=== PATIENT | male | born 1940 | race Caucasian/White ===

== ENCOUNTER 2021-07-24 13:10 | Inpatient (IN) | payer MEDICARE ==
[~2021-07-24] VITALS: Ht 172.7 cm; Wt 68.9 kg
[2021-07-24] MEDS ORDERED: LEVE500T21 PO (16:51)
[2021-07-24] MEDS ORDERED: FINA5TAB4 PO ×2 (16:51→21:24)
[2021-07-24] MEDS ORDERED: MAGN400O7 PO (16:51)
[2021-07-24] MEDS ORDERED: MAGN400T48 PO ×2 (16:51→21:24)
[2021-07-24] MEDS ORDERED: ASPI-630 PO (16:51)
[2021-07-24] MEDS ORDERED: FENO160T PO (16:51)
[2021-07-24] MEDS ORDERED: ACET500T68 PO (16:51)
[2021-07-24] MEDS ORDERED: CALC-135 PO (16:51)
[2021-07-24] MEDS ORDERED: LOPE2TAB27 PO (16:51)
[2021-07-24] MEDS ORDERED: OLAN5TAB67 PO (16:51)
[2021-07-24] MEDS ORDERED: LORA2ORA8 PO ×2 (16:51)
[2021-07-24] MEDS ORDERED: CALC500T31 PO (16:51)
[2021-07-24] MEDS ORDERED: CRAN500T3 PO (16:51)
[2021-07-24] MEDS ORDERED: MELA5TAB20 PO (16:51)
[2021-07-24] MEDS ORDERED: CALC500T14 PO (16:51)
[2021-07-24] MEDS ORDERED: LACT10SO17 PO (16:51)
[2021-07-24] MEDS ORDERED: ATEN25TA42 PO (16:51)
[2021-07-24] MEDS ORDERED: L GA1CAP PO (16:52)
[2021-07-24] MEDS ORDERED: CHOL10004 PO (16:52)
[2021-07-24] MEDS ORDERED: MIRT-7 PO (16:52)
[2021-07-24] MEDS ORDERED: PRIM50TA24 PO ×2 (16:52→21:24)
[2021-07-24] MEDS ORDERED: PANT40TA6 PO ×2 (16:52→21:24)
[2021-07-24] MEDS ORDERED: TAMS0.4C97 PO (16:52)
[2021-07-24] MEDS ORDERED: CARB15DR3 EACHEYE (16:52)
[2021-07-24] MEDS ORDERED: BISM262T12 PO (16:52)
[2021-07-24] MEDS ORDERED: VIT1CAPS12 PO (16:52)
[2021-07-24] MEDS ORDERED: LOPERAMIDE 2 MG CAPSULE PO PRN (21:15)
[2021-07-24] MEDS ORDERED: OLAN2.5T3 PO (21:24)
[2021-07-24] MEDS ORDERED: LOPE-101 PO (21:24)
[2021-07-24] MEDS ORDERED: CALC200T3 PO (21:24)
[2021-07-24] MEDS ORDERED: LEVE500T6 PO (21:24)
[2021-07-24] MEDS ORDERED: MELA10TA PO (21:24)
[2021-07-24] MEDS ORDERED: LACT1CAP19 PO (21:24)
[2021-07-24] MEDS ORDERED: METHYL SALICYLATE/MENTHOL TOPICAL OINTMENT 57GM TUBE. TP PRN (21:45)
[2021-07-24] MEDS ORDERED: MAG HYDROX/AL HYDROX/SIMETH 30 ML ORAL.SUSP PO PRN (21:45)
[2021-07-24] MEDS ORDERED: MAGNESIUM HYDROXIDE 2,400 MG/30 ML ORAL.SUSP. PO PRN (21:45)
[2021-07-24 21:58] VITALS: BP 153/79
[2021-07-24] MEDS: OLANZapine 2.5 MG TABLET PO SCH (22:15)
[2021-07-24] MEDS: levETIRAcetam 500 MG TABLET PO SCH (22:15)
[2021-07-24] MEDS: ACETAMINOPHEN 325 MG TABLET PO PRN (22:15)
[2021-07-24] MEDS: MELATONIN 3 MG TABLET PO SCH (22:15)
[2021-07-25 06:17] VITALS: BP 147/90
--- NOTE | 2021-07-25 07:11 | PDOC ---
Exam Note: Phillip Note: Late entry for 07/24/2021. Please also refer to the separate dictated note~for this date of service dictated separately.~Patient seen individually. Discussed the patient with Nursing staff reviewed the chart.~Reviewed interim history and current functioning. Reviewed vital signs,~Labs/ Radiology~and current medic ations noted below. Continue current treatment with the changes noted in the dictated addendum note Assessment: Vital Signs/I&O: Vital Signs Date Time Temp Pulse Resp B/P (MAP) Pulse Ox O2 Delivery O2 Flow Rate FiO2 07/25/21 06:17 97.4 76 18 147/90 (109) 97 07/24/21 21:58 Room Air I & O 07/24/21 07/24/21 07/25/21 15:00 23:00 07:00 Intake Total 240 ml Balance 240 ml Current Medications: Meds: Current Medications Medications (Trade) Dose Ordered Sig/Vera Route PRN Reason Start Time Stop Time Status Last Admin Dose Admin Calcium Carbonate/ Glycine (Tums) 500 mg BID PO 07/25/21 09:00 Finasteride (Proscar) 5 mg DAILY PO 07/25/21 09:00 Lactobacillus Rhamnosus (Culturelle) 1 cap DAILY PO 07/25/21 09:00 Levetiracetam (Keppra) 1,000 mg 0800,1300 PO 07/24/21 22:00 07/24/21 22:15 Loperamide HCl (Imodium) 2 mg PRN DAILY PRN PO DIARRHEA 07/24/21 21:15 Magnesium Oxide (Magnesium Oxide) 400 mg BID PO 07/25/21 09:00 Olanzapine (ZyPREXA) 2.5 mg BID PO 07/24/21 22:00 07/24/21 22:15 Pantoprazole Sodium (Protonix) 40 mg DAILYAC PO 07/25/21 07:30 Primidone (Mysoline) 12.5 mg DAILY PO 07/25/21 09:00 Melatonin (Melatonin) 6 mg HS PO 07/24/21 22:00 07/24/21 22:15 Acetaminophen (Tylenol) 650 mg PRN Q6HRS PRN PO MILD PAIN / TEMP > 100.3'F 07/24/21 21:45 07/24/21 22:15 Multi-Ingredient Ointment (Analgesic [place]) 1 nicol PRN QID PRN TP MUSCLE PAIN 07/24/21 21:45 Al Hydroxide/Mg Hydroxide (Mylanta Plus Xs) 15 ml PRN AFTMEALHC PRN PO DYSPEPSIA 07/24/21 21:45 Magnesium Hydroxide (Milk Of Magnesia) 2,400 mg PRN QHS PRN PO CONSTIPATION 07/24/21 21:45 Influenza Virus Vaccine Quadrival (Flulaval Quad Syringe) 0.5 ml ONCE ONCE VAX IM 07/25/21 09:00 07/25/21 09:01 Current Medications Medications (Trade) Dose Ordered Sig/Vera Route PRN Reason Start Time Stop Time Status Last Admin Dose Admin Levetiracetam (Keppra) 1,000 mg 0800,1300 PO 07/24/21 22:00 07/24/21 22:15 Olanzapine (ZyPREXA) 2.5 mg BID PO 07/24/21 22:00 07/24/21 22:15 Melatonin (Melatonin) 6 mg HS PO 07/24/21 22:00 07/24/21 22:15 Acetaminophen (Tylenol) 650 mg PRN Q6HRS PRN PO MILD PAIN / TEMP > 100.3'F 07/24/21 21:45 07/24/21 22:15 I have reviewed the current psychotropics carefully including drug interactions. Risk benefit ratio favors no change other than as noted in my dictated progress note. ARON MULLER MD Jul 25, 2021 07:11
[2021-07-25] MEDS: FINASTERIDE 5 MG TABLET. PO SCH (08:34)
[2021-07-25] MEDS: levETIRAcetam 500 MG TABLET PO SCH ×2 (08:34→11:54)
[2021-07-25] MEDS: LACTOBACILLUS RHAMNOSUS GG 1 CAPSULE. PO SCH (08:34)
[2021-07-25] MEDS: MAGNESIUM OXIDE 400 MG TABLET PO SCH ×2 (08:35→20:01)
[2021-07-25] MEDS: PANTOPRAZOLE 40 MG TABLET. PO SCH (08:35)
[2021-07-25] MEDS: CALCIUM CARBONATE 500 MG TAB.CHEW PO SCH ×2 (08:35→20:01)
[2021-07-25] MEDS: PRIMIDONE 50 MG TABLET PO SCH (08:35)
[2021-07-25] MEDS: OLANZapine 2.5 MG TABLET PO SCH ×2 (08:35→20:01)
[2021-07-25] MEDS ORDERED: FLU VACC QUAD 21-22 (6MOS+) PF 0.5 ML SYRINGE. VAX IM ONE (09:00)
[2021-07-25 09:34] LABS: BASO # 0.1 x10^3/uL (0.0-0.2); BASO % 1 % (0-3); EOS # 0.2 x10^3/uL (0.0-0.7); EOS % 3 % (0-3); HEMATOCRIT 39.6 % (39.0-53.0); HEMOGLOBIN 12.7 g/dL (13.0-17.5); LYMPH # 0.9 x10^3/uL (1.0-4.8); LYMPH % 11 % (24-48); MEAN CORPUSCULAR HEMOGLOBIN 27 pg (25-35); MEAN CORPUSCULAR HGB CONC 32 g/dL (31-37); MEAN CORPUSCULAR VOLUME 84 fL (79-100); MONO # 0.5 x10^3/uL (0.0-1.1); MONO % 6 % (0-9); NEUT # 6.2 x10^3uL (1.8-7.7); NEUT % 79 % (31-73); PLATELET COUNT 441 x10^3/uL (140-400); RED CELL DISTRIBUTION WIDTH 14.8 % (11.5-14.5); WHITE BLOOD COUNT 7.8 x10^3/uL (4.0-11.0)
[2021-07-25 09:42] LABS: ALBUMIN/GLOBULIN RATIO 0.8 (1.0-1.7); CALCIUM 9.1 mg/dL (8.5-10.1); CREATININE 0.7 mg/dL (0.7-1.3); GFR 108.8; MAGNESIUM 1.5 mg/dL (1.8-2.4); POTASSIUM 3.7 mmol/L (3.5-5.1); TOTAL BILIRUBIN 0.6 mg/dL (0.2-1.0); TOTAL PROTEIN 6.9 g/dL (6.4-8.2)
--- NOTE | 2021-07-25 15:07 | TX PLAN ---
Interdisciplinary Tx Plan Admission Information Jul 24, 2021 at 18:40 Legal Status (on Admission): Voluntary, DPOA DPOA/Guardian Name: Alison Thornton Contact Verified Code Status: DNR Allergies: Coded Allergies: tree and shrub pollen (Verified Allergy, Unknown, 07/24/21) Uncoded Allergies: Elm tree (Allergy, Unknown, 07/24/21) Estimated Length of Stay: 14 Diagnoses Primary Diagnosis: Major neurocognitive d/o, vascular, alzheimers, with delusions, depression, and BD; Anxiety d/o unspecified; Impulse control d/o Reasons for Admission: Aggressive, Delusions, Agitated, Depressed, Angry, Anxiety/Panic, Hallucinations, Suicidal ideation, Confusion/Disoriented, Poor impulse control Problem in Patient's Words: Per Clinton, "I'm in my final resting place." Additional Admission Comments: Per intake record, grabbed an aide by the wrist and shook her, walking naked in the halls, paranoid, anxious, fixated on dying, thinks he's , wants to , beating his head on the wall, and delusional. Problems Active Problems: Aggressive Delusional Depressed/anxious SI Beating head on wall Poor sleep Socially inappropriate Inactive Problems: Taking meds whole Pt Strengths/Limitations Ability for [place]: Poor Cognitive Functioning/Ability: Poor Communication Skills/Ability: Fair Financial Resources: Fair Insight/Judgement: Poor Intellectual Ability: Fair Physical Health: Fair Social Skills: Fair Stability in Family: Good Verbal Skills: Fair Discharge Criteria Discharge Criteria: No need for close observ., Adequate arrangements @DC, Improved behavior, Improved mood/thought Preliminary Discharge Plan Preliminary DC Plan: Memory Care Other Arrangements: Clinton will return to [facility] once stable Special Precautions Special Precautions: Agitation/Assault, Suicide Risk Fall Risk: High Initial D/C Plan To return to [facility] memory care once stable Identified Discharge Needs: PCP Out patient psychiatry, if available Currently Utilized Resources Currently Utilized Resources/P: PCP 24 hour care by [facility] Referrals Community Resources: Out patient psychiatry if available Identified Problems/Hx/Goals Objectives/Short-Term Goals Short Term Goals: Control abnormal behavior, Dec. Aggression, Dec. Symp. Depression, Medication Stabilization, Monitor Med Effects Short Term Goals in Patient's: Per POA, mood and behavior stabilization rex Alonzo can enjoy the remainder of his life. Interventions/Frequency Staff Interventions/Frequency&: Nursing to provide routine safety checks, adl support, and medication administration. PT/OT eval and treat as indicated. Psychiatry to se three times weekly. SW to see twice weekly. SW and recreational therapy groups as Clinton is willing. 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 Social: Clinton enjoyed latter-day involvement and singing in choirs. Education: Clinton graduated high school and attended some college. Community Follow-up PCP Out patient psychiatry if available 24 hour memory care Community Provider/Family Inpu: Alison, /POA, participted in team meeting via phone on this date. Treatment Plan Explained Patient/Reinsurance Claims Analyst had this treatment plan explained to him/her as indicated by the signature below and has been given the opportunity to ask questions and make suggestions: Date: Patient/Reinsurance Claims Analyst Signature: MATT TOMPKINS Jul 25, 2021 15:07
[2021-07-25 15:32] VITALS: BP 123/76
[2021-07-25 15:40] LABS: THYROID STIM HORMONE (TSH) 1.171 uIU/mL (0.358-3.740)
[2021-07-25] MEDS: MELATONIN 3 MG TABLET PO SCH (20:01)
[2021-07-25] MEDS: MIRTAZAPINE 7.5 MG TABLET. PO SCH (20:02)
--- NOTE | 2021-07-25 20:50 | PDOC ---
Exam Note: Phillip Note: Please also refer to the separate dictated note~for this date of service dictated separately.~Patient seen individually. Discussed the patient with Nursing staff reviewed the chart.~Reviewed interim history and current functioning. Reviewed vital signs,~Labs/ Radiology~and current medications noted below. Continue current treatment with the changes noted in the dictated addendum note Assessment: Vital Signs/I&O: Vital Signs Date Time Temp Pulse Resp B/P (MAP) Pulse Ox O2 Delivery O2 Flow Rate FiO2 07/25/21 15:32 98.0 69 16 123/76 (92) 95 Room Air I & O 07/24/21 07/24/21 07/25/21 15:00 23:00 07:00 Intake Total 240 ml Balance 240 ml Labs: Laboratory Tests Test 07/25/21 09:06 White Blood Count 7.8 x10^3/uL (4.0-11.0) Red Blood Count 4.70 x10^6/uL (4.30-5.70) Hemoglobin 12.7 g/dL (13.0-17.5) L Hematocrit 39.6 % (39.0-53.0) Mean Corpuscular Volume 84 fL (79-100) Mean Corpuscular Hemoglobin 27 pg (25-35) Mean Corpuscular Hemoglobin Concent 32 g/dL (31-37) Red Cell Distribution Width 14.8 % (11.5-14.5) H Platelet Count 441 x10^3/uL (140-400) H Neutrophils (%) (Auto) 79 % (31-73) H Lymphocytes (%) (Auto) 11 % (24-48) L Monocytes (%) (Auto) 6 % (0-9) Eosinophils (%) (Auto) 3 % (0-3) Basophils (%) (Auto) 1 % (0-3) Neutrophils # (Auto) 6.2 x10^3uL (1.8-7.7) Lymphocytes # (Auto) 0.9 x10^3/uL (1.0-4.8) L Monocytes # (Auto) 0.5 x10^3/uL (0.0-1.1) Eosinophils # (Auto) 0.2 x10^3/uL (0.0-0.7) Basophils # (Auto) 0.1 x10^3/uL (0.0-0.2) D-Dimer (Kalli) 1.03 mg/L (0.00-0.50) H Sodium Level 139 mmol/L (136-145) Potassium Level 3.7 mmol/L (3.5-5.1) Chloride Level 101 mmol/L (98-107) Carbon Dioxide Level 28 mmol/L (21-32) Anion Gap 10 (6-14) Blood Urea Nitrogen 16 mg/dL (8-26) Creatinine 0.7 mg/dL (0.7-1.3) Estimated GFR (Cockcroft-Gault) 108.8 BUN/Creatinine Ratio 23 (6-20) H Glucose Level 112 mg/dL (70-99) H Calcium Level 9.1 mg/dL (8.5-10.1) Magnesium Level 1.5 mg/dL (1.8-2.4) L Iron Level 30 ug/dL (65-175) L Total Iron Binding Capacity 213 ug/dL (250-450) L Iron Saturation 14 % (15-34) L Total Bilirubin 0.6 mg/dL (0.2-1.0) Aspartate Amino Transferase (AST) 15 U/L (15-37) Alanine Aminotransferase (ALT) 13 U/L (16-63) L Alkaline Phosphatase 96 U/L (46-116) Total Protein 6.9 g/dL (6.4-8.2) Albumin 3.0 g/dL (3.4-5.0) L Albumin/Globulin Ratio 0.8 (1.0-1.7) L Triglycerides Level 92 mg/dL (0-150) Cholesterol Level 182 mg/dL (0-200) LDL Cholesterol, Calculated 112 mg/dL (0-100) H VLDL Cholesterol, Calculated 18 mg/dL (0-40) Non-HDL Cholesterol Calculated 130 mg/dL (0-129) H HDL Cholesterol 52 mg/dL (40-60) Cholesterol/HDL Ratio 3.0 Vitamin B12 Level 503 pg/mL (247-911) 25-Hydroxy Vitamin D Total 29.1 ng/mL (30-100) L Thyroid Stimulating Hormone (TSH) 1.171 uIU/mL (0.358-3.740) Treponema pallidum Antibody Nonreactive (Nonreactive) Current Medications: Meds: Current Medications Medications (Trade) Dose Ordered Sig/Vera Route PRN Reason Start Time Stop Time Status Last Admin Dose Admin Calcium Carbonate/ Glycine (Tums) 500 mg BID PO 07/25/21 09:00 07/25/21 20:01 Finasteride (Proscar) 5 mg DAILY PO 07/25/21 09:00 07/25/21 08:34 Lactobacillus Rhamnosus (Culturelle) 1 cap DAILY PO 07/25/21 09:00 07/25/21 08:34 Levetiracetam (Keppra) 1,000 mg 0800,1300 PO 07/24/21 22:00 07/25/21 11:54 Magnesium Oxide (Magnesium Oxide) 400 mg BID PO 07/25/21 09:00 07/25/21 20:01 Olanzapine (ZyPREXA) 2.5 mg BID PO 07/24/21 22:00 07/25/21 20:01 Pantoprazole Sodium (Protonix) 40 mg DAILYAC PO 07/25/21 07:30 07/25/21 08:35 Primidone (Mysoline) 12.5 mg DAILY PO 07/25/21 09:00 07/25/21 08:35 Melatonin (Melatonin) 6 mg HS PO 07/24/21 22:00 07/25/21 20:01 Acetaminophen (Tylenol) 650 mg PRN Q6HRS PRN PO MILD PAIN / TEMP > 100.3'F 07/24/21 21:45 07/24/21 22:15 Influenza Virus Vaccine Quadrival (Flulaval Quad [id number] Syringe) 0.5 ml ONCE ONCE VAX IM 07/25/21 09:00 07/25/21 09:01 DC 07/25/21 14:41 Olanzapine (ZyPREXA ZYDIS) 2.5 mg PRN Q2HR PRN PO PSYCHOSIS 07/25/21 18:45 07/25/21 20:01 Mirtazapine (Remeron) 7.5 mg QHS PO 07/25/21 21:00 07/25/21 20:02 I have reviewed the current psychotropics carefully including drug interactions. Risk benefit ratio favors no change other than as noted in my dictated progress note. ARON MULLER MD Jul 25, 2021 20:50
--- NOTE | 2021-07-25 22:09 | HP ---
DATE OF SERVICE: 07/25/2021 ADMIT DATE: 07/24/2021 PSYCHIATRIC ADMISSION HISTORY/EVALUATION This is a late entry, date of service 07/24 covers elements not covered in my initial note of 07/24. IDENTIFYING DATA: The patient is a 81-year-old male referred to us from [facility] via the Emergency Room at [facility] on account of increased agitation, depression, expressing thoughts and plans to end his life, beating his head on the wall, delusional, feeling that he is dying and at times believes he is . He has been eating nonedible things after announcing it. He grabbed the wrist of a inpatient nursing aide and shook her. He has been walking naked in the hallways and has failed outpatient psychiatric interventions, increasingly confused, depressed, psychotic and referred for inpatient psychiatric stabilization, having failed a prior inpatient stay at [facility]. He did develop COVID infection during that hospitalization and his psychiatric symptoms have been progressively worse somewhat before that, but also since then. CHIEF COMPLAINT: "I am okay." The patient was seen shortly after he arrived on the unit, evening of 07/24, previously discussed with Laisha Almanzar, cdl program coordinator and nursing staff, reviewed information from [facility] and the care home. HISTORY OF PRESENT ILLNESS: The patient has a history of worsening symptoms of depression, feeling hopeless, helpless, worthless, agitated, beating his head on the wall, asking his for a gun so that he could end his life. This has been particularly concerning for the since the patient's father's side has history of 2 successful suicides including the patient's father and the father's sister. The patient has some sleep and appetite changes, worsening memory deficits, urinary and fecal incontinence. No clear symptoms of bipolar disorder. PAST PSYCHIATRIC HISTORY: As above. MEDICAL HISTORY: Positive for GERD, BPH, epilepsy, metabolic encephalopathy, obstructive sleep apnea, hyperlipidemia, hypertension, agoraphobia with panic disorder, obstructive sleep apnea, obstructive and reflux uropathy, hypomagnesemia, acute respiratory failure with hypoxia, muscle weakness, hypotension, acute kidney failure. ACCU-CHEKS: None. CODE STATUS: DNR. ALLERGIES: Negative. DIET: Regular. Takes medications whole. Ambulates with walker. UA 07/23 was negative. CURRENT PSYCHOTROPICS: Keppra 1000 mg b.i.d., melatonin 10 mg at bedtime, Zyprexa 2.5 mg b.i.d. FAMILY HISTORY: As noted above. SOCIAL HISTORY: The patient was residing at home with his and most recently has been at the care home. 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 He has 1 son, Jonathan, who lives in [place], [place]. No physical, sexual or elder abuse history is noted. He is not known to be a perpetrator. REACTION TO HOSPITALIZATION: The patient accepting of it, but somewhat oblivious to it as well. REVIEW OF SYSTEMS: Ambulation impaired. No CV, , pulmonary, eye, ENT system symptoms on review. MENTAL STATUS EXAM: The patient was seen individually on evening of 07/24. He is extremely anxious, oriented just to himself, but on further questioning, the orientation was better than he initially presented with. Speech moderate latency, somewhat distractible. No active suicidal or homicidal ideation. Mood is depressed, anxious. Short-term memory is impaired. IMPRESSION: Major depressive disorder, recurrent with psychotic features, major neurocognitive disorder multifactorial with delusion, depression, behavioral disturbance; anxiety disorder, unspecified; impulse control disorder, unspecified. Rest as above. PLAN: Admit to Geropsychiatry unit at [facility]. I will see the patient daily individually from a psychiatric standpoint, medical followup, Dr. Page/Dr. Cuevas. Continue patient on his current psychotropics. Consider adding Zyprexa p.r.n. We will assess the patient's baseline. Consider Zoloft as an antidepressant and Remeron if insomnia persists and this should also help his anxiety. We will adjust further as clinically indicated. ESTIMATED LENGTH OF STAY: 10-12 days. DISPOSITION PLANS: Back to care home when stable. We will also get records from his last psychiatric hospitalization at [facility]. CARLIE DR: Zulema TID: [id number]
[2021-07-25 22:32] LABS: THYROXINE 6.3 ug/dL (4.5-12.0)
[2021-07-26 00:07] LABS: HEMOGLOBIN A1C 5.5 % (4.8-5.6)
[2021-07-26 06:35] VITALS: BP 141/87
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
[2021-07-26] MEDS: levETIRAcetam 500 MG TABLET PO SCH ×2 (08:43→12:33)
[2021-07-26] MEDS: FINASTERIDE 5 MG TABLET. PO SCH (08:43)
[2021-07-26] MEDS: PANTOPRAZOLE 40 MG TABLET. PO SCH (08:43)
[2021-07-26] MEDS: PRIMIDONE 50 MG TABLET PO SCH (08:44)
[2021-07-26] MEDS: LACTOBACILLUS RHAMNOSUS GG 1 CAPSULE. PO SCH (08:44)
[2021-07-26] MEDS: MAGNESIUM OXIDE 400 MG TABLET PO SCH ×2 (08:44→20:47)
[2021-07-26] MEDS: OLANZapine 2.5 MG TABLET PO SCH ×2 (08:44→20:46)
[2021-07-26] MEDS: CALCIUM CARBONATE 500 MG TAB.CHEW PO SCH ×2 (08:44→20:47)
[2021-07-26] MEDS: SERTRALINE 25 MG TABLET. PO SCH (08:45)
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
[2021-07-26 15:48] VITALS: BP 128/83
--- NOTE | 2021-07-26 16:49 | EKG ---
[address] [address] Test Date: 2021-07-26 Test Time: 15:30:41 Pat Name: USMAN MIGUEL Department: Room: [address] [place] [address] Gender: M Stepdown Nurse: : 1940 Requested By: ARON MULLER Order Number: [id number] Reading MD: Measurements Intervals [place] Rate: P: [place]: QRS: QRSD: T: QT: QTc: Interpretive Statements
[2021-07-26] MEDS: MIRTAZAPINE 7.5 MG TABLET. PO SCH (20:46)
[2021-07-26] MEDS: MELATONIN 3 MG TABLET PO SCH (20:47)
--- NOTE | 2021-07-26 21:13 | PDOC ---
Exam Note: Phillip Note: Please also refer to the separate dictated note~for this date of service dictated separately.~Patient seen individually. Discussed the patient with Nursing staff reviewed the chart.~Reviewed interim history and current functioning. Reviewed vital signs,~Labs/ Radiology~and current medications noted below. Continue current treatment with the changes noted in the dictated addendum note Assessment: Vital Signs/I&O: Vital Signs Date Time Temp Pulse Resp B/P (MAP) Pulse Ox O2 Delivery O2 Flow Rate FiO2 07/26/21 15:48 98.4 84 19 128/83 (98) 93 07/25/21 15:32 Room Air I & O 07/25/21 07/25/21 07/26/21 15:00 23:00 07:00 Intake Total 600 ml 120 ml Balance 600 ml 120 ml Current Medications: Meds: Current Medications Medications (Trade) Dose Ordered Sig/Vera Route PRN Reason Start Time Stop Time Status Last Admin Dose Admin Calcium Carbonate/ Glycine (Tums) 500 mg BID PO 07/25/21 09:00 07/26/21 20:47 Finasteride (Proscar) 5 mg DAILY PO 07/25/21 09:00 07/26/21 08:43 Lactobacillus Rhamnosus (Culturelle) 1 cap DAILY PO 07/25/21 09:00 07/26/21 08:44 Levetiracetam (Keppra) 1,000 mg 0800,1300 PO 07/24/21 22:00 07/26/21 12:33 Loperamide HCl (Imodium) 2 mg PRN DAILY PRN PO DIARRHEA 07/24/21 21:15 Magnesium Oxide (Magnesium Oxide) 400 mg BID PO 07/25/21 09:00 07/26/21 20:47 Olanzapine (ZyPREXA) 2.5 mg BID PO 07/24/21 22:00 07/26/21 20:46 Pantoprazole Sodium (Protonix) 40 mg DAILYAC PO 07/25/21 07:30 07/26/21 08:43 Primidone (Mysoline) 12.5 mg DAILY PO 07/25/21 09:00 07/26/21 08:44 Melatonin (Melatonin) 6 mg HS PO 07/24/21 22:00 07/26/21 20:47 Acetaminophen (Tylenol) 650 mg PRN Q6HRS PRN PO MILD PAIN / TEMP > 100.3'F 07/24/21 21:45 07/24/21 22:15 Multi-Ingredient Ointment (Analgesic [place]) 1 nicol PRN QID PRN TP MUSCLE PAIN 07/24/21 21:45 Al Hydroxide/Mg Hydroxide (Mylanta Plus Xs) 15 ml PRN AFTMEALHC PRN PO DYSPEPSIA 07/24/21 21:45 Magnesium Hydroxide (Milk Of Magnesia) 2,400 mg PRN QHS PRN PO CONSTIPATION 07/24/21 21:45 Influenza Virus Vaccine Quadrival (Flulaval Quad Syringe) 0.5 ml ONCE ONCE VAX IM 07/25/21 09:00 07/25/21 09:01 DC 07/25/21 14:41 Olanzapine (ZyPREXA ZYDIS) 2.5 mg PRN Q2HR PRN PO PSYCHOSIS 07/25/21 18:45 07/26/21 11:01 Mirtazapine (Remeron) 7.5 mg QHS PO 07/25/21 21:00 07/26/21 20:46 Sertraline HCl (Zoloft) 25 mg DAILY PO 07/26/21 09:00 07/28/21 10:00 07/26/21 08:45 Sertraline HCl (Zoloft) 50 mg DAILY PO 07/29/21 09:00 Current Medications Medications (Trade) Dose Ordered Sig/Vera Route PRN Reason Start Time Stop Time Status Last Admin Dose Admin Sertraline HCl (Zoloft) 25 mg DAILY PO 07/26/21 09:00 07/28/21 10:00 07/26/21 08:45 I have reviewed the current psychotropics carefully including drug interactions. Risk benefit ratio favors no change other than as noted in my dictated progress note. Diagnosis: Problems: (1) Major depressive disorder, recurrent, severe with psychotic features (2) Impulse control disorder, unspecified (3) Anxiety disorder, unspecified (4) Dementia, vascular, with depression (5) Dementia, vascular, with delusions (6) Dementia in Alzheimer's disease with depression (7) Dementia in Alzheimer's disease with delusions (8) Major neurocognitive disorder (9) Dementia in Alzheimer's disease with early onset with behavioral disturbance ARON MULLER MD Jul 26, 2021 21:13
[2021-07-27 06:02] VITALS: BP 130/85
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
[2021-07-27] MEDS: levETIRAcetam 500 MG TABLET PO SCH ×2 (09:04→12:16)
[2021-07-27] MEDS: LACTOBACILLUS RHAMNOSUS GG 1 CAPSULE. PO SCH (09:04)
[2021-07-27] MEDS: FINASTERIDE 5 MG TABLET. PO SCH (09:04)
[2021-07-27] MEDS: OLANZapine 2.5 MG TABLET PO SCH ×2 (09:04→20:53)
[2021-07-27] MEDS: MAGNESIUM OXIDE 400 MG TABLET PO SCH ×2 (09:04→20:54)
[2021-07-27] MEDS: SERTRALINE 25 MG TABLET. PO SCH (09:04)
[2021-07-27] MEDS: PRIMIDONE 50 MG TABLET PO SCH (09:04)
[2021-07-27] MEDS: PANTOPRAZOLE 40 MG TABLET. PO SCH (09:04)
[2021-07-27] MEDS: CALCIUM CARBONATE 500 MG TAB.CHEW PO SCH ×2 (09:04→20:53)
[2021-07-27 15:12] VITALS: BP 144/75
[2021-07-27] MEDS: MIRTAZAPINE 7.5 MG TABLET. PO SCH (20:53)
[2021-07-27] MEDS: MELATONIN 3 MG TABLET PO SCH (20:54)
--- NOTE | 2021-07-27 21:05 | PDOC ---
Exam Note: Phillip Note: Please also refer to the separate dictated note~for this date of service dictated separately.~Patient seen individually. Discussed the patient with Nursing staff reviewed the chart.~Reviewed interim history and current functioning. Reviewed vital signs,~Labs/ Radiology~and current medications noted below. Continue current treatment with the changes noted in the dictated addendum note Assessment: Vital Signs/I&O: Vital Signs Date Time Temp Pulse Resp B/P (MAP) Pulse Ox O2 Delivery O2 Flow Rate FiO2 07/27/21 15:12 98.4 70 20 144/75 (98) 95 Room Air I & O 07/26/21 07/26/21 07/27/21 15:00 23:00 07:00 Intake Total 0 ml 720 ml Balance 0 ml 720 ml Current Medications: Meds: Current Medications Medications (Trade) Dose Ordered Sig/Vera Route PRN Reason Start Time Stop Time Status Last Admin Dose Admin Calcium Carbonate/ Glycine (Tums) 500 mg BID PO 07/25/21 09:00 07/27/21 20:53 Finasteride (Proscar) 5 mg DAILY PO 07/25/21 09:00 07/27/21 09:04 Lactobacillus Rhamnosus (Culturelle) 1 cap DAILY PO 07/25/21 09:00 07/27/21 09:04 Levetiracetam (Keppra) 1,000 mg 0800,1300 PO 07/24/21 22:00 07/27/21 12:16 Loperamide HCl (Imodium) 2 mg PRN DAILY PRN PO DIARRHEA 07/24/21 21:15 Magnesium Oxide (Magnesium Oxide) 400 mg BID PO 07/25/21 09:00 07/27/21 20:54 Olanzapine (ZyPREXA) 2.5 mg BID PO 07/24/21 22:00 07/27/21 20:53 Pantoprazole Sodium (Protonix) 40 mg DAILYAC PO 07/25/21 07:30 07/27/21 09:04 Primidone (Mysoline) 12.5 mg DAILY PO 07/25/21 09:00 07/27/21 09:04 Melatonin (Melatonin) 6 mg HS PO 07/24/21 22:00 07/27/21 20:54 Acetaminophen (Tylenol) 650 mg PRN Q6HRS PRN PO MILD PAIN / TEMP > 100.3'F 07/24/21 21:45 07/24/21 22:15 Multi-Ingredient Ointment (Analgesic [place]) 1 nicol PRN QID PRN TP MUSCLE PAIN 07/24/21 21:45 Al Hydroxide/Mg Hydroxide (Mylanta Plus Xs) 15 ml PRN AFTMEALHC PRN PO DYSPEPSIA 07/24/21 21:45 Magnesium Hydroxide (Milk Of Magnesia) 2,400 mg PRN QHS PRN PO CONSTIPATION 07/24/21 21:45 Influenza Virus Vaccine Quadrival (Flulaval Quad Syringe) 0.5 ml ONCE ONCE VAX IM 07/25/21 09:00 07/25/21 09:01 DC 07/25/21 14:41 Olanzapine (ZyPREXA ZYDIS) 2.5 mg PRN Q2HR PRN PO PSYCHOSIS 07/25/21 18:45 07/26/21 11:01 Mirtazapine (Remeron) 7.5 mg QHS PO 07/25/21 21:00 07/27/21 20:53 Sertraline HCl (Zoloft) 25 mg DAILY PO 07/26/21 09:00 07/28/21 10:00 07/27/21 09:04 Sertraline HCl (Zoloft) 50 mg DAILY PO 07/29/21 09:00 I have reviewed the current psychotropics carefully including drug interactions. Risk benefit ratio favors no change other than as noted in my dictated progress note. 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
[2021-07-28 05:48] VITALS: BP 128/76
[2021-07-28] MEDS: FINASTERIDE 5 MG TABLET. PO SCH (08:49)
[2021-07-28] MEDS: PRIMIDONE 50 MG TABLET PO SCH (08:51)
[2021-07-28] MEDS: MAGNESIUM OXIDE 400 MG TABLET PO SCH ×2 (08:52→20:40)
[2021-07-28] MEDS: LACTOBACILLUS RHAMNOSUS GG 1 CAPSULE. PO SCH (08:52)
[2021-07-28] MEDS: CALCIUM CARBONATE 500 MG TAB.CHEW PO SCH ×2 (08:52→20:41)
[2021-07-28] MEDS: SERTRALINE 25 MG TABLET. PO SCH (08:52)
[2021-07-28] MEDS: OLANZapine 2.5 MG TABLET PO SCH ×2 (08:52→20:41)
[2021-07-28] MEDS: PANTOPRAZOLE 40 MG TABLET. PO SCH (08:52)
[2021-07-28] MEDS: levETIRAcetam 500 MG TABLET PO SCH ×2 (08:52→12:44)
[2021-07-28 15:56] VITALS: BP 144/77
[2021-07-28] MEDS: MIRTAZAPINE 7.5 MG TABLET. PO SCH (20:40)
[2021-07-28] MEDS: MELATONIN 3 MG TABLET PO SCH (20:41)
--- NOTE | 2021-07-28 21:02 | PDOC ---
Exam Note: Phillip Note: Please also refer to the separate dictated note~for this date of service dictated separately.~Patient seen individually. Discussed the patient with Nursing staff reviewed the chart.~Reviewed interim history and current functioning. Reviewed vital signs,~Labs/ Radiology~and current medications noted below. Continue current treatment with the changes noted in the dictated addendum note Assessment: Vital Signs/I&O: Vital Signs Date Time Temp Pulse Resp B/P (MAP) Pulse Ox O2 Delivery O2 Flow Rate FiO2 07/28/21 15:56 98.4 69 16 144/77 (99) 94 07/27/21 15:12 Room Air I & O 07/27/21 07/27/21 07/28/21 15:00 23:00 07:00 Intake Total 240 ml 240 ml Balance 240 ml 240 ml Current Medications: Meds: Current Medications Medications (Trade) Dose Ordered Sig/Vera Route PRN Reason Start Time Stop Time Status Last Admin Dose Admin Calcium Carbonate/ Glycine (Tums) 500 mg BID PO 07/25/21 09:00 07/28/21 20:41 Finasteride (Proscar) 5 mg DAILY PO 07/25/21 09:00 07/28/21 08:49 Lactobacillus Rhamnosus (Culturelle) 1 cap DAILY PO 07/25/21 09:00 07/28/21 08:52 Levetiracetam (Keppra) 1,000 mg 0800,1300 PO 07/24/21 22:00 07/28/21 12:44 Loperamide HCl (Imodium) 2 mg PRN DAILY PRN PO DIARRHEA 07/24/21 21:15 Magnesium Oxide (Magnesium Oxide) 400 mg BID PO 07/25/21 09:00 07/28/21 20:40 Olanzapine (ZyPREXA) 2.5 mg BID PO 07/24/21 22:00 07/28/21 20:41 Pantoprazole Sodium (Protonix) 40 mg DAILYAC PO 07/25/21 07:30 07/28/21 08:52 Primidone (Mysoline) 12.5 mg DAILY PO 07/25/21 09:00 07/28/21 08:51 Melatonin (Melatonin) 6 mg HS PO 07/24/21 22:00 07/28/21 20:41 Acetaminophen (Tylenol) 650 mg PRN Q6HRS PRN PO MILD PAIN / TEMP > 100.3'F 07/24/21 21:45 07/24/21 22:15 Multi-Ingredient Ointment (Analgesic [place]) 1 nicol PRN QID PRN TP MUSCLE PAIN 07/24/21 21:45 Al Hydroxide/Mg Hydroxide (Mylanta Plus Xs) 15 ml PRN AFTMEALHC PRN PO DYSPEPSIA 07/24/21 21:45 Magnesium Hydroxide (Milk Of Magnesia) 2,400 mg PRN QHS PRN PO CONSTIPATION 07/24/21 21:45 Influenza Virus Vaccine Quadrival (Flulaval Quad Syringe) 0.5 ml ONCE ONCE VAX IM 07/25/21 09:00 07/25/21 09:01 DC 07/25/21 14:41 Olanzapine (ZyPREXA ZYDIS) 2.5 mg PRN Q2HR PRN PO PSYCHOSIS 07/25/21 18:45 07/26/21 11:01 Mirtazapine (Remeron) 7.5 mg QHS PO 07/25/21 21:00 07/28/21 20:40 Sertraline HCl (Zoloft) 25 mg DAILY PO 07/26/21 09:00 07/28/21 10:01 DC 07/28/21 08:52 Sertraline HCl (Zoloft) 50 mg DAILY PO 07/29/21 09:00 I have reviewed the current psychotropics carefully including drug interactions. Risk benefit ratio favors no change other than as noted in my dictated progress note. 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
[2021-07-29 06:11] VITALS: BP 144/76
--- NOTE | 2021-07-29 07:28 | PDOC ---
Exam Note: Phillip Note: This note is a late entry for 07/27/2021 covers elements not covered in my initial note. Subjective: The patient was seen individually in the evening of 07/27/2021 with Sushant COTTON, discussed and reviewed the chart. The patient slept 6-1/4 hours previous night. Overall he remains confused. Speech is word salad. He is compliant with medications, aware of himself. Review of Systems: He is somewhat hard of hearing. Impaired ambulation. No CV, , pulmonary, eye system symptoms on review. Reliability poor. Mental Status Exam: The patient is oriented to himself. Insight, judgment, recent memory is impaired. Language function intact. Attention span short. Mood and affect somewhat labile. Laboratory Data: Reviewed. Impression: Major depressive disorder, recurrent, severe with psychotic features. Major neurocognitive disorder, multifactorial with delusion, depression behavioral disturbance. Anxiety disorder unspecified. Impulse control disorder unspecified. Plan: No change from initial note. Assessment: Vital Signs/I&O: Vital Signs Date Time Temp Pulse Resp B/P (MAP) Pulse Ox O2 Delivery O2 Flow Rate FiO2 07/29/21 06:11 97.6 67 16 144/76 (98) 92 07/27/21 15:12 Room Air I & O 07/28/21 07/28/21 07/29/21 15:00 23:00 07:00 Intake Total 600 ml 240 ml Balance 600 ml 240 ml Current Medications: Meds: Current Medications Medications (Trade) Dose Ordered Sig/Vera Route PRN Reason Start Time Stop Time Status Last Admin Dose Admin Calcium Carbonate/ Glycine (Tums) 500 mg BID PO 07/25/21 09:00 07/28/21 20:41 Finasteride (Proscar) 5 mg DAILY PO 07/25/21 09:00 07/28/21 08:49 Lactobacillus Rhamnosus (Culturelle) 1 cap DAILY PO 07/25/21 09:00 07/28/21 08:52 Levetiracetam (Keppra) 1,000 mg 0800,1300 PO 07/24/21 22:00 07/28/21 12:44 Loperamide HCl (Imodium) 2 mg PRN DAILY PRN PO DIARRHEA 07/24/21 21:15 Magnesium Oxide (Magnesium Oxide) 400 mg BID PO 07/25/21 09:00 07/28/21 20:40 Olanzapine (ZyPREXA) 2.5 mg BID PO 07/24/21 22:00 07/28/21 20:41 Pantoprazole Sodium (Protonix) 40 mg DAILYAC PO 07/25/21 07:30 07/28/21 08:52 Primidone (Mysoline) 12.5 mg DAILY PO 07/25/21 09:00 07/28/21 08:51 Melatonin (Melatonin) 6 mg HS PO 07/24/21 22:00 07/28/21 20:41 Acetaminophen (Tylenol) 650 mg PRN Q6HRS PRN PO MILD PAIN / TEMP > 100.3'F 07/24/21 21:45 07/24/21 22:15 Multi-Ingredient Ointment (Analgesic [place]) 1 nciol PRN QID PRN TP MUSCLE PAIN 07/24/21 21:45 Al Hydroxide/Mg Hydroxide (Mylanta Plus Xs) 15 ml PRN AFTMEALHC PRN PO DYSPEPSIA 07/24/21 21:45 Magnesium Hydroxide (Milk Of Magnesia) 2,400 mg PRN QHS PRN PO CONSTIPATION 07/24/21 21:45 Influenza Virus Vaccine Quadrival (Flulaval Quad [id number] Syringe) 0.5 ml ONCE ONCE VAX IM 07/25/21 09:00 07/25/21 09:01 DC 07/25/21 14:41 Olanzapine (ZyPREXA ZYDIS) 2.5 mg PRN Q2HR PRN PO PSYCHOSIS 07/25/21 18:45 07/26/21 11:01 Mirtazapine (Remeron) 7.5 mg QHS PO 07/25/21 21:00 07/28/21 20:40 Sertraline HCl (Zoloft) 25 mg DAILY PO 07/26/21 09:00 07/28/21 10:01 DC 07/28/21 08:52 Sertraline HCl (Zoloft) 50 mg DAILY PO 07/29/21 09:00 I have reviewed the current psychotropics carefully including drug interactions. Risk benefit ratio favors no change other than as noted in my dictated progress note. 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
--- NOTE | 2021-07-29 07:42 | PDOC ---
Exam Note: Phillip Note: This note is a late entry for 07/28/2021 covers elements not covered in my initial note. Subjective: The patient was seen individually in the evening of 07/28/2021 with Amber COTTON, discussed and reviewed the chart. The patient slept 6 hours previous night. He is up for breakfast, slept through lunch. He tried punching a nursing staff at lunchtime. I met with him in his room. Review of Systems: Impaired ambulation. No CV, , pulmonary, eye system symptoms on review. Reliability poor. Mental Status Exam: The patient is oriented to himself. Insight, judgment, recent and remote memory, attention and concentration, fund of knowledge is poor consistent with his diagnosis. Laboratory Data: Reviewed. Impression: Major depressive disorder, recurrent, severe with psychotic features. Major neurocognitive disorder, multifactorial with delusion, depression behavioral disturbance. Anxiety disorder unspecified. Impulse control disorder unspecified. Plan: No change from initial note. Assessment: Vital Signs/I&O: Vital Signs Date Time Temp Pulse Resp B/P (MAP) Pulse Ox O2 Delivery O2 Flow Rate FiO2 07/29/21 06:11 97.6 67 16 144/76 (98) 92 07/27/21 15:12 Room Air I & O 07/28/21 07/28/21 07/29/21 14:59 22:59 06:59 Intake Total 600 ml 240 ml Balance 600 ml 240 ml Current Medications: Meds: Current Medications Medications (Trade) Dose Ordered Sig/Vera Route PRN Reason Start Time Stop Time Status Last Admin Dose Admin Calcium Carbonate/ Glycine (Tums) 500 mg BID PO 07/25/21 09:00 07/28/21 20:41 Finasteride (Proscar) 5 mg DAILY PO 07/25/21 09:00 07/28/21 08:49 Lactobacillus Rhamnosus (Culturelle) 1 cap DAILY PO 07/25/21 09:00 07/28/21 08:52 Levetiracetam (Keppra) 1,000 mg 0800,1300 PO 07/24/21 22:00 07/28/21 12:44 Loperamide HCl (Imodium) 2 mg PRN DAILY PRN PO DIARRHEA 07/24/21 21:15 Magnesium Oxide (Magnesium Oxide) 400 mg BID PO 07/25/21 09:00 07/28/21 20:40 Olanzapine (ZyPREXA) 2.5 mg BID PO 07/24/21 22:00 07/28/21 20:41 Pantoprazole Sodium (Protonix) 40 mg DAILYAC PO 07/25/21 07:30 07/28/21 08:52 Primidone (Mysoline) 12.5 mg DAILY PO 07/25/21 09:00 07/28/21 08:51 Melatonin (Melatonin) 6 mg HS PO 07/24/21 22:00 07/28/21 20:41 Acetaminophen (Tylenol) 650 mg PRN Q6HRS PRN PO MILD PAIN / TEMP > 100.3'F 07/24/21 21:45 07/24/21 22:15 Multi-Ingredient Ointment (Analgesic [place]) 1 nicol PRN QID PRN TP MUSCLE PAIN 07/24/21 21:45 Al Hydroxide/Mg Hydroxide (Mylanta Plus Xs) 15 ml PRN AFTMEALHC PRN PO DYSPEPSIA 07/24/21 21:45 Magnesium Hydroxide (Milk Of Magnesia) 2,400 mg PRN QHS PRN PO CONSTIPATION 07/24/21 21:45 Influenza Virus Vaccine Quadrival (Flulaval Quad [id number] Syringe) 0.5 ml ONCE ONCE VAX IM 07/25/21 09:00 07/25/21 09:01 DC 07/25/21 14:41 Olanzapine (ZyPREXA ZYDIS) 2.5 mg PRN Q2HR PRN PO PSYCHOSIS 07/25/21 18:45 07/26/21 11:01 Mirtazapine (Remeron) 7.5 mg QHS PO 07/25/21 21:00 07/28/21 20:40 Sertraline HCl (Zoloft) 25 mg DAILY PO 07/26/21 09:00 07/28/21 10:01 DC 07/28/21 08:52 Sertraline HCl (Zoloft) 50 mg DAILY PO 07/29/21 09:00 I have reviewed the current psychotropics carefully including drug interactions. Risk benefit ratio favors no change other than as noted in my dictated progress note. 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
[2021-07-29] MEDS: SERTRALINE 50 MG TABLET. PO SCH (08:40)
[2021-07-29] MEDS: LACTOBACILLUS RHAMNOSUS GG 1 CAPSULE. PO SCH (08:40)
[2021-07-29] MEDS: MAGNESIUM OXIDE 400 MG TABLET PO SCH ×2 (08:40→20:32)
[2021-07-29] MEDS: levETIRAcetam 500 MG TABLET PO SCH ×2 (08:40→12:32)
[2021-07-29] MEDS: OLANZapine 2.5 MG TABLET PO SCH ×2 (08:40→20:32)
[2021-07-29] MEDS: PRIMIDONE 50 MG TABLET PO SCH (08:41)
[2021-07-29] MEDS: PANTOPRAZOLE 40 MG TABLET. PO SCH (08:41)
[2021-07-29] MEDS: FINASTERIDE 5 MG TABLET. PO SCH (08:41)
[2021-07-29] MEDS: CALCIUM CARBONATE 500 MG TAB.CHEW PO SCH ×2 (08:45→20:32)
[2021-07-29 15:20] VITALS: BP 120/75
[2021-07-29] MEDS: CHOLECALCIFEROL (VITAMIN D3) 50,000 UNIT CAPSULE PO SCH (16:00)
[2021-07-29] MEDS: MELATONIN 3 MG TABLET PO SCH (20:32)
[2021-07-29] MEDS: MIRTAZAPINE 7.5 MG TABLET. PO SCH (20:32)
--- NOTE | 2021-07-29 20:34 | PDOC ---
Exam Note: Phillip Note: Please also refer to the separate dictated note~for this date of service dictated separately.~Patient seen individually. Discussed the patient with Nursing staff reviewed the chart.~Reviewed interim history and current functioning. Reviewed vital signs,~Labs/ Radiology~and current medications noted below. Continue current treatment with the changes noted in the dictated addendum note Assessment: Vital Signs/I&O: Vital Signs Date Time Temp Pulse Resp B/P (MAP) Pulse Ox O2 Delivery O2 Flow Rate FiO2 07/29/21 15:20 97.4 86 20 120/75 (90) 94 07/27/21 15:12 Room Air I & O 07/28/21 07/28/21 07/29/21 15:00 23:00 07:00 Intake Total 600 ml 240 ml Balance 600 ml 240 ml Current Medications: Meds: Current Medications Medications (Trade) Dose Ordered Sig/Vera Route PRN Reason Start Time Stop Time Status Last Admin Dose Admin Calcium Carbonate/ Glycine (Tums) 500 mg BID PO 07/25/21 09:00 07/29/21 20:32 Finasteride (Proscar) 5 mg DAILY PO 07/25/21 09:00 07/29/21 08:41 Lactobacillus Rhamnosus (Culturelle) 1 cap DAILY PO 07/25/21 09:00 07/29/21 08:40 Levetiracetam (Keppra) 1,000 mg 0800,1300 PO 07/24/21 22:00 07/29/21 12:32 Loperamide HCl (Imodium) 2 mg PRN DAILY PRN PO DIARRHEA 07/24/21 21:15 Magnesium Oxide (Magnesium Oxide) 400 mg BID PO 07/25/21 09:00 07/29/21 20:32 Olanzapine (ZyPREXA) 2.5 mg BID PO 07/24/21 22:00 07/29/21 20:32 Pantoprazole Sodium (Protonix) 40 mg DAILYAC PO 07/25/21 07:30 07/29/21 08:41 Primidone (Mysoline) 12.5 mg DAILY PO 07/25/21 09:00 07/29/21 08:41 Melatonin (Melatonin) 6 mg HS PO 07/24/21 22:00 07/29/21 20:32 Acetaminophen (Tylenol) 650 mg PRN Q6HRS PRN PO MILD PAIN / TEMP > 100.3'F 07/24/21 21:45 07/24/21 22:15 Multi-Ingredient Ointment (Analgesic [place]) 1 nicol PRN QID PRN TP MUSCLE PAIN 07/24/21 21:45 Al Hydroxide/Mg Hydroxide (Mylanta Plus Xs) 15 ml PRN AFTMEALHC PRN PO DYSPEPSIA 07/24/21 21:45 Magnesium Hydroxide (Milk Of Magnesia) 2,400 mg PRN QHS PRN PO CONSTIPATION 07/24/21 21:45 Influenza Virus Vaccine Quadrival (Flulaval Quad Syringe) 0.5 ml ONCE ONCE VAX IM 07/25/21 09:00 07/25/21 09:01 DC 07/25/21 14:41 Olanzapine (ZyPREXA ZYDIS) 2.5 mg PRN Q2HR PRN PO PSYCHOSIS 07/25/21 18:45 07/26/21 11:01 Mirtazapine (Remeron) 7.5 mg QHS PO 07/25/21 21:00 07/29/21 20:32 Sertraline HCl (Zoloft) 25 mg DAILY PO 07/26/21 09:00 07/28/21 10:01 DC 07/28/21 08:52 Sertraline HCl (Zoloft) 50 mg DAILY PO 07/29/21 09:00 07/31/21 15:00 07/29/21 08:40 Vitamin D (Vitamin D3) 50,000 unit WEEKLY PO 07/29/21 16:00 07/29/21 16:00 Sertraline HCl (Zoloft) 75 mg DAILY PO 08/01/21 09:00 Current Medications Medications (Trade) Dose Ordered Sig/Vera Route PRN Reason Start Time Stop Time Status Last Admin Dose Admin Sertraline HCl (Zoloft) 50 mg DAILY PO 07/29/21 09:00 07/31/21 15:00 07/29/21 08:40 Vitamin D (Vitamin D3) 50,000 unit WEEKLY PO 07/29/21 16:00 07/29/21 16:00 I have reviewed the current psychotropics carefully including drug interactions. Risk benefit ratio favors no change other than as noted in my dictated progress note. 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
[2021-07-30 05:56] VITALS: BP 155/90
[2021-07-30] MEDS: CALCIUM CARBONATE 500 MG TAB.CHEW PO SCH ×2 (09:00→20:17)
[2021-07-30] MEDS: MAGNESIUM OXIDE 400 MG TABLET PO SCH ×2 (09:00→20:18)
[2021-07-30] MEDS: levETIRAcetam 500 MG TABLET PO SCH ×2 (09:00→13:10)
[2021-07-30] MEDS: OLANZapine 2.5 MG TABLET PO SCH ×2 (09:00→20:18)
[2021-07-30] MEDS: SERTRALINE 50 MG TABLET. PO SCH (09:00)
[2021-07-30] MEDS: LACTOBACILLUS RHAMNOSUS GG 1 CAPSULE. PO SCH (09:00)
[2021-07-30] MEDS: FINASTERIDE 5 MG TABLET. PO SCH (09:00)
[2021-07-30] MEDS: PANTOPRAZOLE 40 MG TABLET. PO SCH (09:01)
[2021-07-30] MEDS: PRIMIDONE 50 MG TABLET PO SCH (09:01)
[2021-07-30 15:24] VITALS: BP 148/78
[2021-07-30] MEDS: MELATONIN 3 MG TABLET PO SCH (20:17)
[2021-07-30] MEDS: MIRTAZAPINE 7.5 MG TABLET. PO SCH (20:17)
--- NOTE | 2021-07-30 20:56 | PDOC ---
Exam Note: Phillip Note: Please also refer to the separate dictated note~for this date of service dictated separately.~Patient seen individually. Discussed the patient with Nursing staff reviewed the chart.~Reviewed interim history and current functioning. Reviewed vital signs,~Labs/ Radiology~and current medications noted below. Continue current treatment with the changes noted in the dictated addendum note Assessment: Vital Signs/I&O: Vital Signs Date Time Temp Pulse Resp B/P (MAP) Pulse Ox O2 Delivery O2 Flow Rate FiO2 07/30/21 15:24 98.2 63 18 148/78 (101) 95 07/27/21 15:12 Room Air I & O 07/29/21 07/29/21 07/30/21 15:00 23:00 07:00 Intake Total 1260 ml 240 ml Balance 1260 ml 240 ml Current Medications: Meds: Current Medications Medications (Trade) Dose Ordered Sig/Vera Route PRN Reason Start Time Stop Time Status Last Admin Dose Admin Calcium Carbonate/ Glycine (Tums) 500 mg BID PO 07/25/21 09:00 07/30/21 20:17 Finasteride (Proscar) 5 mg DAILY PO 07/25/21 09:00 07/30/21 09:00 Lactobacillus Rhamnosus (Culturelle) 1 cap DAILY PO 07/25/21 09:00 07/30/21 09:00 Levetiracetam (Keppra) 1,000 mg 0800,1300 PO 07/24/21 22:00 07/30/21 13:10 Loperamide HCl (Imodium) 2 mg PRN DAILY PRN PO DIARRHEA 07/24/21 21:15 Magnesium Oxide (Magnesium Oxide) 400 mg BID PO 07/25/21 09:00 07/30/21 20:18 Olanzapine (ZyPREXA) 2.5 mg BID PO 07/24/21 22:00 07/30/21 20:18 Pantoprazole Sodium (Protonix) 40 mg DAILYAC PO 07/25/21 07:30 07/30/21 09:01 Primidone (Mysoline) 12.5 mg DAILY PO 07/25/21 09:00 07/30/21 09:01 Melatonin (Melatonin) 6 mg HS PO 07/24/21 22:00 07/30/21 20:17 Acetaminophen (Tylenol) 650 mg PRN Q6HRS PRN PO MILD PAIN / TEMP > 100.3'F 07/24/21 21:45 07/24/21 22:15 Multi-Ingredient Ointment (Analgesic [place]) 1 nicol PRN QID PRN TP MUSCLE PAIN 07/24/21 21:45 Al Hydroxide/Mg Hydroxide (Mylanta Plus Xs) 15 ml PRN AFTMEALHC PRN PO DYSPEPSIA 07/24/21 21:45 Magnesium Hydroxide (Milk Of Magnesia) 2,400 mg PRN QHS PRN PO CONSTIPATION 07/24/21 21:45 Influenza Virus Vaccine Quadrival (Flulaval Quad Syringe) 0.5 ml ONCE ONCE VAX IM 07/25/21 09:00 07/25/21 09:01 DC 07/25/21 14:41 Olanzapine (ZyPREXA ZYDIS) 2.5 mg PRN Q2HR PRN PO PSYCHOSIS 07/25/21 18:45 07/26/21 11:01 Mirtazapine (Remeron) 7.5 mg QHS PO 07/25/21 21:00 07/30/21 20:17 Sertraline HCl (Zoloft) 25 mg DAILY PO 07/26/21 09:00 07/28/21 10:01 DC 07/28/21 08:52 Sertraline HCl (Zoloft) 50 mg DAILY PO 07/29/21 09:00 07/31/21 15:00 07/30/21 09:00 Vitamin D (Vitamin D3) 50,000 unit WEEKLY PO 07/29/21 16:00 07/29/21 16:00 Sertraline HCl (Zoloft) 75 mg DAILY PO 08/01/21 09:00 I have reviewed the current psychotropics carefully including drug interactions. Risk benefit ratio favors no change other than as noted in my dictated progress note. Diagnosis: Problems: (1) Major depressive disorder, recurrent, severe with psychotic features (2) Impulse control disorder, unspecified (3) Anxiety disorder, unspecified (4) Dementia, vascular, with depression (5) Dementia, vascular, with delusions (6) Dementia in Alzheimer's disease with depression (7) Dementia in Alzheimer's disease with delusions (8) Major neurocognitive disorder (9) Dementia in Alzheimer's disease with early onset with behavioral disturbance ARON MULLER MD Jul 30, 2021 20:56
[2021-07-31 06:10] VITALS: BP 136/81
[2021-07-31] MEDS: MAGNESIUM OXIDE 400 MG TABLET PO SCH ×2 (08:51→20:15)
[2021-07-31] MEDS: PANTOPRAZOLE 40 MG TABLET. PO SCH (08:51)
[2021-07-31] MEDS: levETIRAcetam 500 MG TABLET PO SCH ×2 (08:51→13:05)
[2021-07-31] MEDS: OLANZapine 2.5 MG TABLET PO SCH ×2 (08:51→20:14)
[2021-07-31] MEDS: CALCIUM CARBONATE 500 MG TAB.CHEW PO SCH ×2 (08:51→20:15)
[2021-07-31] MEDS: LACTOBACILLUS RHAMNOSUS GG 1 CAPSULE. PO SCH (08:51)
[2021-07-31] MEDS: FINASTERIDE 5 MG TABLET. PO SCH (08:51)
[2021-07-31] MEDS: PRIMIDONE 50 MG TABLET PO SCH (08:51)
[2021-07-31] MEDS: SERTRALINE 50 MG TABLET. PO SCH (08:52)
--- NOTE | 2021-07-31 09:58 | PDOC ---
Exam Note: Phillip Note: This note is a late entry for 07/29/2021 covers elements not covered in my initial note. Subjective: The patient was seen individually in the evening of 07/29/2021 with Amber COTTON, discussed and reviewed the chart. The patient slept 8-3/4 hours previous night. He remains somewhat confused, stating he wants his pants on to see the devil. Nursing staff is encouraging him to be polite and he seems to be able to use the words please and thank you. Review of Systems: Impaired ambulation. No CV, , pulmonary, eye system symptoms on review. Reliability poor. Mental Status Exam: The patient is oriented to himself. Insight, judgment, recent and remote memory, attention and concentration, fund of knowledge is poor consistent with his diagnosis. Laboratory Data: Reviewed. Impression: Major depressive disorder, recurrent, severe with psychotic features. Major neurocognitive disorder, multifactorial with delusion, depression behavioral disturbance. Anxiety disorder unspecified. Impulse control disorder unspecified. Plan: After he has been on Zoloft 50 mg a day for 3 days, we will increase to 75 mg a day. Rest psychotropics unchanged for now. Assessment: Vital Signs/I&O: Vital Signs Date Time Temp Pulse Resp B/P (MAP) Pulse Ox O2 Delivery O2 Flow Rate FiO2 07/31/21 06:10 97.5 92 18 136/81 (99) 94 07/27/21 15:12 Room Air I & O 07/30/21 07/30/21 07/31/21 14:59 22:59 06:59 Intake Total 1060 ml 240 ml Balance 1060 ml 240 ml Current Medications: Meds: Current Medications Medications (Trade) Dose Ordered Sig/Vera Route PRN Reason Start Time Stop Time Status Last Admin Dose Admin Calcium Carbonate/ Glycine (Tums) 500 mg BID PO 07/25/21 09:00 07/31/21 08:51 Finasteride (Proscar) 5 mg DAILY PO 07/25/21 09:00 07/31/21 08:51 Lactobacillus Rhamnosus (Culturelle) 1 cap DAILY PO 07/25/21 09:00 07/31/21 08:51 Levetiracetam (Keppra) 1,000 mg 0800,1300 PO 07/24/21 22:00 07/31/21 08:51 Loperamide HCl (Imodium) 2 mg PRN DAILY PRN PO DIARRHEA 07/24/21 21:15 Magnesium Oxide (Magnesium Oxide) 400 mg BID PO 07/25/21 09:00 07/31/21 08:51 Olanzapine (ZyPREXA) 2.5 mg BID PO 07/24/21 22:00 07/31/21 08:51 Pantoprazole Sodium (Protonix) 40 mg DAILYAC PO 07/25/21 07:30 07/31/21 08:51 Primidone (Mysoline) 12.5 mg DAILY PO 07/25/21 09:00 07/31/21 08:51 Melatonin (Melatonin) 6 mg HS PO 07/24/21 22:00 07/30/21 20:17 Acetaminophen (Tylenol) 650 mg PRN Q6HRS PRN PO MILD PAIN / TEMP > 100.3'F 07/24/21 21:45 07/24/21 22:15 Multi-Ingredient Ointment (Analgesic [place]) 1 nicol PRN QID PRN TP MUSCLE PAIN 07/24/21 21:45 Al Hydroxide/Mg Hydroxide (Mylanta Plus Xs) 15 ml PRN AFTMEALHC PRN PO DYSPEPSIA 07/24/21 21:45 Magnesium Hydroxide (Milk Of Magnesia) 2,400 mg PRN QHS PRN PO CONSTIPATION 07/24/21 21:45 Influenza Virus Vaccine Quadrival (Flulaval Quad [id number] Syringe) 0.5 ml ONCE ONCE VAX IM 07/25/21 09:00 07/25/21 09:01 DC 07/25/21 14:41 Olanzapine (ZyPREXA ZYDIS) 2.5 mg PRN Q2HR PRN PO PSYCHOSIS 07/25/21 18:45 07/26/21 11:01 Mirtazapine (Remeron) 7.5 mg QHS PO 07/25/21 21:00 07/30/21 20:17 Sertraline HCl (Zoloft) 25 mg DAILY PO 07/26/21 09:00 07/28/21 10:01 DC 07/28/21 08:52 Sertraline HCl (Zoloft) 50 mg DAILY PO 07/29/21 09:00 07/31/21 15:00 07/31/21 08:52 Vitamin D (Vitamin D3) 50,000 unit WEEKLY PO 07/29/21 16:00 07/29/21 16:00 Sertraline HCl (Zoloft) 75 mg DAILY PO 08/01/21 09:00 I have reviewed the current psychotropics carefully including drug interactions. Risk benefit ratio favors no change other than as noted in my dictated progress note. Diagnosis: Problems: (1) Major depressive disorder, recurrent, severe with psychotic features (2) Impulse control disorder, unspecified (3) Anxiety disorder, unspecified (4) Dementia, vascular, with depression (5) Dementia, vascular, with delusions (6) Dementia in Alzheimer's disease with depression (7) Dementia in Alzheimer's disease with delusions (8) Major neurocognitive disorder (9) Dementia in Alzheimer's disease with early onset with behavioral disturbance ARON MULLER MD Jul 31, 2021 09:58
--- NOTE | 2021-07-31 10:11 | PDOC ---
Exam Note: Phillip Note: This note is a late entry for 07/30/2021 covers elements not covered in my initial note. Subjective: The patient was seen individually in the evening of 07/30/2021 with Amber COTTON, discussed and reviewed the chart. The patient slept 6-3/4 hours previous night. He has been calmer, somewhat withdrawn. I met with him in his room after he had a shower. He took another patients wheelchair. He has not been talking about dying. Review of Systems: Impaired ambulation. No CV, , pulmonary, eye system symptoms on review. Reliability poor. Mental Status Exam: The patient is oriented to himself. Insight, judgment, recent and remote memory, attention and concentration, fund of knowledge is poor consistent with his diagnosis. Laboratory Data: Reviewed. Impression: Major depressive disorder, recurrent, severe with psychotic features. Major neurocognitive disorder, multifactorial with delusion, depression behavioral disturbance. Anxiety disorder unspecified. Impulse control disorder unspecified. Plan: No change from initial note. Assessment: Vital Signs/I&O: Vital Signs Date Time Temp Pulse Resp B/P (MAP) Pulse Ox O2 Delivery O2 Flow Rate FiO2 07/31/21 06:10 97.5 92 18 136/81 (99) 94 07/27/21 15:12 Room Air I & O 07/30/21 07/30/21 07/31/21 15:00 23:00 07:00 Intake Total 1060 ml 240 ml Balance 1060 ml 240 ml Current Medications: Meds: Current Medications Medications (Trade) Dose Ordered Sig/Vera Route PRN Reason Start Time Stop Time Status Last Admin Dose Admin Calcium Carbonate/ Glycine (Tums) 500 mg BID PO 07/25/21 09:00 07/31/21 08:51 Finasteride (Proscar) 5 mg DAILY PO 07/25/21 09:00 07/31/21 08:51 Lactobacillus Rhamnosus (Culturelle) 1 cap DAILY PO 07/25/21 09:00 07/31/21 08:51 Levetiracetam (Keppra) 1,000 mg 0800,1300 PO 07/24/21 22:00 07/31/21 08:51 Loperamide HCl (Imodium) 2 mg PRN DAILY PRN PO DIARRHEA 07/24/21 21:15 Magnesium Oxide (Magnesium Oxide) 400 mg BID PO 07/25/21 09:00 07/31/21 08:51 Olanzapine (ZyPREXA) 2.5 mg BID PO 07/24/21 22:00 07/31/21 08:51 Pantoprazole Sodium (Protonix) 40 mg DAILYAC PO 07/25/21 07:30 07/31/21 08:51 Primidone (Mysoline) 12.5 mg DAILY PO 07/25/21 09:00 07/31/21 08:51 Melatonin (Melatonin) 6 mg HS PO 07/24/21 22:00 07/30/21 20:17 Acetaminophen (Tylenol) 650 mg PRN Q6HRS PRN PO MILD PAIN / TEMP > 100.3'F 07/24/21 21:45 07/24/21 22:15 Multi-Ingredient Ointment (Analgesic [place]) 1 nicol PRN QID PRN TP MUSCLE PAIN 07/24/21 21:45 Al Hydroxide/Mg Hydroxide (Mylanta Plus Xs) 15 ml PRN AFTMEALHC PRN PO DYSPEPSIA 07/24/21 21:45 Magnesium Hydroxide (Milk Of Magnesia) 2,400 mg PRN QHS PRN PO CONSTIPATION 07/24/21 21:45 Influenza Virus Vaccine Quadrival (Flulaval Quad [id number] Syringe) 0.5 ml ONCE ONCE VAX IM 07/25/21 09:00 07/25/21 09:01 DC 07/25/21 14:41 Olanzapine (ZyPREXA ZYDIS) 2.5 mg PRN Q2HR PRN PO PSYCHOSIS 07/25/21 18:45 07/26/21 11:01 Mirtazapine (Remeron) 7.5 mg QHS PO 07/25/21 21:00 07/30/21 20:17 Sertraline HCl (Zoloft) 25 mg DAILY PO 07/26/21 09:00 07/28/21 10:01 DC 07/28/21 08:52 Sertraline HCl (Zoloft) 50 mg DAILY PO 07/29/21 09:00 07/31/21 15:00 07/31/21 08:52 Vitamin D (Vitamin D3) 50,000 unit WEEKLY PO 07/29/21 16:00 07/29/21 16:00 Sertraline HCl (Zoloft) 75 mg DAILY PO 08/01/21 09:00 I have reviewed the current psychotropics carefully including drug interactions. Risk benefit ratio favors no change other than as noted in my dictated progress note. 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
[2021-07-31 15:10] VITALS: BP 138/73
[2021-07-31] MEDS: MELATONIN 3 MG TABLET PO SCH (20:14)
[2021-07-31] MEDS: MIRTAZAPINE 7.5 MG TABLET. PO SCH (20:15)
--- NOTE | 2021-07-31 20:19 | PDOC ---
Exam Note: Phillip Note: Please also refer to the separate dictated note~for this date of service dictated separately.~Patient seen individually. Discussed the patient with Nursing staff reviewed the chart.~Reviewed interim history and current functioning. Reviewed vital signs,~Labs/ Radiology~and current medications noted below. Continue current treatment with the changes noted in the dictated addendum note Assessment: Vital Signs/I&O: Vital Signs Date Time Temp Pulse Resp B/P (MAP) Pulse Ox O2 Delivery O2 Flow Rate FiO2 07/31/21 15:10 98.2 92 18 138/73 (94) 94 07/27/21 15:12 Room Air I & O 07/30/21 07/30/21 07/31/21 14:59 22:59 06:59 Intake Total 1060 ml 240 ml Balance 1060 ml 240 ml Current Medications: Meds: Current Medications Medications (Trade) Dose Ordered Sig/Vera Route PRN Reason Start Time Stop Time Status Last Admin Dose Admin Calcium Carbonate/ Glycine (Tums) 500 mg BID PO 07/25/21 09:00 07/31/21 20:15 Finasteride (Proscar) 5 mg DAILY PO 07/25/21 09:00 07/31/21 08:51 Lactobacillus Rhamnosus (Culturelle) 1 cap DAILY PO 07/25/21 09:00 07/31/21 08:51 Levetiracetam (Keppra) 1,000 mg 0800,1300 PO 07/24/21 22:00 07/31/21 13:05 Loperamide HCl (Imodium) 2 mg PRN DAILY PRN PO DIARRHEA 07/24/21 21:15 Magnesium Oxide (Magnesium Oxide) 400 mg BID PO 07/25/21 09:00 07/31/21 20:15 Olanzapine (ZyPREXA) 2.5 mg BID PO 07/24/21 22:00 07/31/21 20:14 Pantoprazole Sodium (Protonix) 40 mg DAILYAC PO 07/25/21 07:30 07/31/21 08:51 Primidone (Mysoline) 12.5 mg DAILY PO 07/25/21 09:00 07/31/21 08:51 Melatonin (Melatonin) 6 mg HS PO 07/24/21 22:00 07/31/21 20:14 Acetaminophen (Tylenol) 650 mg PRN Q6HRS PRN PO MILD PAIN / TEMP > 100.3'F 07/24/21 21:45 07/24/21 22:15 Multi-Ingredient Ointment (Analgesic [place]) 1 nicol PRN QID PRN TP MUSCLE PAIN 07/24/21 21:45 Al Hydroxide/Mg Hydroxide (Mylanta Plus Xs) 15 ml PRN AFTMEALHC PRN PO DYSPEPSIA 07/24/21 21:45 Magnesium Hydroxide (Milk Of Magnesia) 2,400 mg PRN QHS PRN PO CONSTIPATION 07/24/21 21:45 Influenza Virus Vaccine Quadrival (Flulaval Quad Syringe) 0.5 ml ONCE ONCE VAX IM 07/25/21 09:00 07/25/21 09:01 DC 07/25/21 14:41 Olanzapine (ZyPREXA ZYDIS) 2.5 mg PRN Q2HR PRN PO PSYCHOSIS 07/25/21 18:45 07/26/21 11:01 Mirtazapine (Remeron) 7.5 mg QHS PO 07/25/21 21:00 07/31/21 20:15 Sertraline HCl (Zoloft) 25 mg DAILY PO 07/26/21 09:00 07/28/21 10:01 DC 07/28/21 08:52 Sertraline HCl (Zoloft) 50 mg DAILY PO 07/29/21 09:00 07/31/21 15:00 DC 07/31/21 08:52 Vitamin D (Vitamin D3) 50,000 unit WEEKLY PO 07/29/21 16:00 07/29/21 16:00 Sertraline HCl (Zoloft) 75 mg DAILY PO 08/01/21 09:00 I have reviewed the current psychotropics carefully including drug interactions. Risk benefit ratio favors no change other than as noted in my dictated progress note. 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
[2021-08-01 06:12] VITALS: BP 151/90
--- NOTE | 2021-08-01 07:16 | PDOC ---
Exam Note: Phillip Note: This note is a late entry for 07/31/2021 covers elements not covered in my initial note. Subjective: The patient was seen individually in the evening of 07/31/2021 with Dakota COTTON, discussed and reviewed the chart. The patient slept 7-1/4 hours previous night. Overall previous night the patient seems to be hallucinating, talking to someone and replying in a third person, quite disorganized. He needs redirection at times for meals. No suicidal ideation. Review of Systems: Impaired ambulation. No CV, , pulmonary, eye system symptoms on review. Reliability poor. Mental Status Exam: The patient is oriented to himself. Insight, judgment, recent and remote memory, attention and concentration, fund of knowledge is poor consistent with his diagnosis. Laboratory Data: Reviewed. Impression: Major depressive disorder, recurrent, severe with psychotic features. Major neurocognitive disorder, multifactorial with delusion, depression behavioral disturbance. Anxiety disorder unspecified. Impulse control disorder unspecified. Plan: No change from initial note. Assessment: Vital Signs/I&O: Vital Signs Date Time Temp Pulse Resp B/P (MAP) Pulse Ox O2 Delivery O2 Flow Rate FiO2 08/01/21 06:12 97.5 89 18 151/90 (110) 93 07/27/21 15:12 Room Air I & O 07/31/21 07/31/21 08/01/21 15:00 23:00 07:00 Intake Total 1080 ml 360 ml Balance 1080 ml 360 ml Current Medications: Meds: Current Medications Medications (Trade) Dose Ordered Sig/Vera Route PRN Reason Start Time Stop Time Status Last Admin Dose Admin Calcium Carbonate/ Glycine (Tums) 500 mg BID PO 07/25/21 09:00 07/31/21 20:15 Finasteride (Proscar) 5 mg DAILY PO 07/25/21 09:00 07/31/21 08:51 Lactobacillus Rhamnosus (Culturelle) 1 cap DAILY PO 07/25/21 09:00 07/31/21 08:51 Levetiracetam (Keppra) 1,000 mg 0800,1300 PO 07/24/21 22:00 07/31/21 13:05 Loperamide HCl (Imodium) 2 mg PRN DAILY PRN PO DIARRHEA 07/24/21 21:15 Magnesium Oxide (Magnesium Oxide) 400 mg BID PO 07/25/21 09:00 07/31/21 20:15 Olanzapine (ZyPREXA) 2.5 mg BID PO 07/24/21 22:00 07/31/21 20:14 Pantoprazole Sodium (Protonix) 40 mg DAILYAC PO 07/25/21 07:30 07/31/21 08:51 Primidone (Mysoline) 12.5 mg DAILY PO 07/25/21 09:00 07/31/21 08:51 Melatonin (Melatonin) 6 mg HS PO 07/24/21 22:00 07/31/21 20:14 Acetaminophen (Tylenol) 650 mg PRN Q6HRS PRN PO MILD PAIN / TEMP > 100.3'F 07/24/21 21:45 07/24/21 22:15 Multi-Ingredient Ointment (Analgesic [place]) 1 nicol PRN QID PRN TP MUSCLE PAIN 07/24/21 21:45 Al Hydroxide/Mg Hydroxide (Mylanta Plus Xs) 15 ml PRN AFTMEALHC PRN PO DYSPEPSIA 07/24/21 21:45 Magnesium Hydroxide (Milk Of Magnesia) 2,400 mg PRN QHS PRN PO CONSTIPATION 07/24/21 21:45 Influenza Virus Vaccine Quadrival (Flulaval Quad [id number] Syringe) 0.5 ml ONCE ONCE VAX IM 07/25/21 09:00 07/25/21 09:01 DC 07/25/21 14:41 Olanzapine (ZyPREXA ZYDIS) 2.5 mg PRN Q2HR PRN PO PSYCHOSIS 07/25/21 18:45 07/26/21 11:01 Mirtazapine (Remeron) 7.5 mg QHS PO 07/25/21 21:00 07/31/21 20:15 Sertraline HCl (Zoloft) 25 mg DAILY PO 07/26/21 09:00 07/28/21 10:01 DC 07/28/21 08:52 Sertraline HCl (Zoloft) 50 mg DAILY PO 07/29/21 09:00 07/31/21 15:00 DC 07/31/21 08:52 Vitamin D (Vitamin D3) 50,000 unit WEEKLY PO 07/29/21 16:00 07/29/21 16:00 Sertraline HCl (Zoloft) 75 mg DAILY PO 08/01/21 09:00 I have reviewed the current psychotropics carefully including drug interactions. Risk benefit ratio favors no change other than as noted in my dictated progress note. 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
[2021-08-01] MEDS: PANTOPRAZOLE 40 MG TABLET. PO SCH (08:43)
[2021-08-01] MEDS: CALCIUM CARBONATE 500 MG TAB.CHEW PO SCH ×2 (08:43→19:57)
[2021-08-01] MEDS: levETIRAcetam 500 MG TABLET PO SCH ×2 (08:43→12:22)
[2021-08-01] MEDS: OLANZapine 2.5 MG TABLET PO SCH ×2 (08:43→19:57)
[2021-08-01] MEDS: LACTOBACILLUS RHAMNOSUS GG 1 CAPSULE. PO SCH (08:43)
[2021-08-01] MEDS: FINASTERIDE 5 MG TABLET. PO SCH (08:43)
[2021-08-01] MEDS: MAGNESIUM OXIDE 400 MG TABLET PO SCH ×2 (08:43→19:57)
[2021-08-01] MEDS: PRIMIDONE 50 MG TABLET PO SCH (08:44)
[2021-08-01] MEDS: SERTRALINE 25 MG TABLET. PO SCH (08:44)
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
[2021-08-01 15:35] VITALS: BP 154/72
[2021-08-01] MEDS: MELATONIN 3 MG TABLET PO SCH (19:57)
[2021-08-01] MEDS: MIRTAZAPINE 7.5 MG TABLET. PO SCH (19:57)
--- NOTE | 2021-08-01 21:16 | PDOC ---
Exam Note: Phillip Note: Please also refer to the separate dictated note~for this date of service dictated separately.~Patient seen individually. Discussed the patient with Nursing staff reviewed the chart.~Reviewed interim history and current functioning. Reviewed vital signs,~Labs/ Radiology~and current medications noted below. Continue current treatment with the changes noted in the dictated addendum note Assessment: Vital Signs/I&O: Vital Signs Date Time Temp Pulse Resp B/P (MAP) Pulse Ox O2 Delivery O2 Flow Rate FiO2 08/01/21 15:35 98.7 70 19 154/72 (99) 95 07/27/21 15:12 Room Air I & O 07/31/21 07/31/21 08/01/21 15:00 23:00 07:00 Intake Total 1080 ml 360 ml Balance 1080 ml 360 ml Current Medications: Meds: Current Medications Medications (Trade) Dose Ordered Sig/Vera Route PRN Reason Start Time Stop Time Status Last Admin Dose Admin Calcium Carbonate/ Glycine (Tums) 500 mg BID PO 07/25/21 09:00 08/01/21 19:57 Finasteride (Proscar) 5 mg DAILY PO 07/25/21 09:00 08/01/21 08:43 Lactobacillus Rhamnosus (Culturelle) 1 cap DAILY PO 07/25/21 09:00 08/01/21 08:43 Levetiracetam (Keppra) 1,000 mg 0800,1300 PO 07/24/21 22:00 08/01/21 12:22 Loperamide HCl (Imodium) 2 mg PRN DAILY PRN PO DIARRHEA 07/24/21 21:15 Magnesium Oxide (Magnesium Oxide) 400 mg BID PO 07/25/21 09:00 08/01/21 19:57 Olanzapine (ZyPREXA) 2.5 mg BID PO 07/24/21 22:00 08/01/21 19:57 Pantoprazole Sodium (Protonix) 40 mg DAILYAC PO 07/25/21 07:30 08/01/21 08:43 Primidone (Mysoline) 12.5 mg DAILY PO 07/25/21 09:00 08/01/21 08:44 Melatonin (Melatonin) 6 mg HS PO 07/24/21 22:00 08/01/21 19:57 Acetaminophen (Tylenol) 650 mg PRN Q6HRS PRN PO MILD PAIN / TEMP > 100.3'F 07/24/21 21:45 07/24/21 22:15 Multi-Ingredient Ointment (Analgesic [place]) 1 nicol PRN QID PRN TP MUSCLE PAIN 07/24/21 21:45 Al Hydroxide/Mg Hydroxide (Mylanta Plus Xs) 15 ml PRN AFTMEALHC PRN PO DYSPEPSIA 07/24/21 21:45 Magnesium Hydroxide (Milk Of Magnesia) 2,400 mg PRN QHS PRN PO CONSTIPATION 07/24/21 21:45 Influenza Virus Vaccine Quadrival (Flulaval Quad Syringe) 0.5 ml ONCE ONCE VAX IM 07/25/21 09:00 07/25/21 09:01 DC 07/25/21 14:41 Olanzapine (ZyPREXA ZYDIS) 2.5 mg PRN Q2HR PRN PO PSYCHOSIS 07/25/21 18:45 07/26/21 11:01 Mirtazapine (Remeron) 7.5 mg QHS PO 07/25/21 21:00 08/01/21 19:57 Sertraline HCl (Zoloft) 25 mg DAILY PO 07/26/21 09:00 07/28/21 10:01 DC 07/28/21 08:52 Sertraline HCl (Zoloft) 50 mg DAILY PO 07/29/21 09:00 07/31/21 15:00 DC 07/31/21 08:52 Vitamin D (Vitamin D3) 50,000 unit WEEKLY PO 07/29/21 16:00 07/29/21 16:00 Sertraline HCl (Zoloft) 75 mg DAILY PO 08/01/21 09:00 08/01/21 08:44 Current Medications Medications (Trade) Dose Ordered Sig/Vera Route PRN Reason Start Time Stop Time Status Last Admin Dose Admin Sertraline HCl (Zoloft) 75 mg DAILY PO 08/01/21 09:00 08/01/21 08:44 I have reviewed the current psychotropics carefully including drug interactions. Risk benefit ratio favors no change other than as noted in my dictated progress note. Diagnosis: Problems: (1) Major depressive disorder, recurrent, severe with psychotic features (2) Impulse control disorder, unspecified (3) Anxiety disorder, unspecified (4) Dementia, vascular, with depression (5) Dementia, vascular, with delusions (6) Dementia in Alzheimer's disease with depression (7) Dementia in Alzheimer's disease with delusions (8) Major neurocognitive disorder (9) Dementia in Alzheimer's disease with early onset with behavioral disturbance ARON MULLER MD Aug 01, 2021 21:16
[2021-08-02 06:11] VITALS: BP 160/94
[2021-08-02] MEDS: LACTOBACILLUS RHAMNOSUS GG 1 CAPSULE. PO SCH (08:44)
[2021-08-02] MEDS: levETIRAcetam 500 MG TABLET PO SCH ×2 (08:44→12:15)
[2021-08-02] MEDS: FINASTERIDE 5 MG TABLET. PO SCH (08:44)
[2021-08-02] MEDS: PANTOPRAZOLE 40 MG TABLET. PO SCH (08:44)
[2021-08-02] MEDS: SERTRALINE 25 MG TABLET. PO SCH (08:44)
[2021-08-02] MEDS: OLANZapine 2.5 MG TABLET PO SCH ×2 (08:45→19:52)
[2021-08-02] MEDS: MAGNESIUM OXIDE 400 MG TABLET PO SCH ×2 (08:45→19:53)
[2021-08-02] MEDS: CALCIUM CARBONATE 500 MG TAB.CHEW PO SCH ×2 (08:45→19:53)
[2021-08-02] MEDS: PRIMIDONE 50 MG TABLET PO SCH (08:46)
[2021-08-02 15:15] VITALS: BP 154/81
[2021-08-02] MEDS: MIRTAZAPINE 7.5 MG TABLET. PO SCH (19:53)
[2021-08-02] MEDS: MELATONIN 3 MG TABLET PO SCH (19:53)
--- NOTE | 2021-08-02 20:23 | PDOC ---
Exam Note: Phillip Note: Please also refer to the separate dictated note~for this date of service dictated separately.~Patient seen individually. Discussed the patient with Nursing staff reviewed the chart.~Reviewed interim history and current functioning. Reviewed vital signs,~Labs/ Radiology~and current medications noted below. Continue current treatment with the changes noted in the dictated addendum note Assessment: Vital Signs/I&O: Vital Signs Date Time Temp Pulse Resp B/P (MAP) Pulse Ox O2 Delivery O2 Flow Rate FiO2 08/02/21 15:15 98.3 83 16 154/81 (105) 95 07/27/21 15:12 Room Air I & O 08/01/21 08/01/21 08/02/21 15:00 23:00 07:00 Intake Total 840 ml 380 ml Balance 840 ml 380 ml Current Medications: Meds: Current Medications Medications (Trade) Dose Ordered Sig/Vera Route PRN Reason Start Time Stop Time Status Last Admin Dose Admin Calcium Carbonate/ Glycine (Tums) 500 mg BID PO 07/25/21 09:00 08/02/21 19:53 Finasteride (Proscar) 5 mg DAILY PO 07/25/21 09:00 08/02/21 08:44 Lactobacillus Rhamnosus (Culturelle) 1 cap DAILY PO 07/25/21 09:00 08/02/21 08:44 Levetiracetam (Keppra) 1,000 mg 0800,1300 PO 07/24/21 22:00 08/02/21 12:15 Loperamide HCl (Imodium) 2 mg PRN DAILY PRN PO DIARRHEA 07/24/21 21:15 Magnesium Oxide (Magnesium Oxide) 400 mg BID PO 07/25/21 09:00 08/02/21 19:53 Olanzapine (ZyPREXA) 2.5 mg BID PO 07/24/21 22:00 08/02/21 19:52 Pantoprazole Sodium (Protonix) 40 mg DAILYAC PO 07/25/21 07:30 08/02/21 08:44 Primidone (Mysoline) 12.5 mg DAILY PO 07/25/21 09:00 08/02/21 17:19 DC 08/02/21 08:46 Melatonin (Melatonin) 6 mg HS PO 07/24/21 22:00 08/02/21 19:53 Acetaminophen (Tylenol) 650 mg PRN Q6HRS PRN PO MILD PAIN / TEMP > 100.3'F 07/24/21 21:45 07/24/21 22:15 Multi-Ingredient Ointment (Analgesic [place]) 1 nicol PRN QID PRN TP MUSCLE PAIN 07/24/21 21:45 Al Hydroxide/Mg Hydroxide (Mylanta Plus Xs) 15 ml PRN AFTMEALHC PRN PO DYSPEPSIA 07/24/21 21:45 Magnesium Hydroxide (Milk Of Magnesia) 2,400 mg PRN QHS PRN PO CONSTIPATION 07/24/21 21:45 Influenza Virus Vaccine Quadrival (Flulaval Quad 2629-0620 Syringe) 0.5 ml ONCE ONCE VAX IM 07/25/21 09:00 07/25/21 09:01 DC 07/25/21 14:41 Olanzapine (ZyPREXA ZYDIS) 2.5 mg PRN Q2HR PRN PO PSYCHOSIS 07/25/21 18:45 07/26/21 11:01 Mirtazapine (Remeron) 7.5 mg QHS PO 07/25/21 21:00 08/02/21 19:53 Sertraline HCl (Zoloft) 25 mg DAILY PO 07/26/21 09:00 07/28/21 10:01 DC 07/28/21 08:52 Sertraline HCl (Zoloft) 50 mg DAILY PO 07/29/21 09:00 07/31/21 15:00 DC 07/31/21 08:52 Vitamin D (Vitamin D3) 50,000 unit WEEKLY PO 07/29/21 16:00 07/29/21 16:00 Sertraline HCl (Zoloft) 75 mg DAILY PO 08/01/21 09:00 08/02/21 08:44 Primidone (Mysoline) 25 mg DAILY PO 08/03/21 09:00 I have reviewed the current psychotropics carefully including drug interactions. Risk benefit ratio favors no change other than as noted in my dictated progress note. Diagnosis: Problems: (1) Major depressive disorder, recurrent, severe with psychotic features (2) Impulse control disorder, unspecified (3) Anxiety disorder, unspecified (4) Dementia, vascular, with depression (5) Dementia, vascular, with delusions (6) Dementia in Alzheimer's disease with depression (7) Dementia in Alzheimer's disease with delusions (8) Major neurocognitive disorder (9) Dementia in Alzheimer's disease with early onset with behavioral disturbance ARON MULLER MD Aug 02, 2021 20:23
[2021-08-03 06:28] VITALS: BP 162/82
--- NOTE | 2021-08-03 07:05 | PDOC ---
Exam Note: Phillip Note: This note is a late entry for 08/01/2021 covers elements not covered in my initial note. Subjective: The patient was reviewed at treatment team meeting individually in the morning on 08/01/2021 with Maria Esther Salinas, Laisha Patel, and Angelica Isabel (hospice social worker), Caprice, activity therapy, and Dakota COTTON, discussed and reviewed the chart. The patient slept 8-1/4 hours previous night. His Isidra attended the conference as well. We had a lengthy discussion about his diagnoses, current psychotropics. Appetite is 80%. Average sleep 7-1/2 hours. He is withdrawn, goes back to his room between meals, questionable paranoia, hallucinations. Primidone has been increased for his tremors. I met with him in his room in the evening. Review of Systems: Ambulation impaired. No CV, , pulmonary, eye system symptoms on review. Mental Status Exam: The patient is oriented to himself. Insight, judgment, recent and remote memory, attention and concentration, fund of knowledge is poor consistent with his diagnosis. Laboratory Data: Reviewed. Impression: Major depressive disorder, recurrent, severe with psychotic features. Major neurocognitive disorder, multifactorial with delusion, depression behavioral disturbance. Anxiety disorder unspecified. Impulse control disorder unspecified. Plan: Continue Keppra for his seizures, melatonin, scheduled Zyprexa, Remeron, Zoloft has been increased gradually and currently 75 mg a day and Primidone has been increased. Adjust further as clinically indicated. Assessment: Vital Signs/I&O: Vital Signs Date Time Temp Pulse Resp B/P (MAP) Pulse Ox O2 Delivery O2 Flow Rate FiO2 08/03/21 06:28 97.7 66 18 162/82 (108 94 I & O 08/02/21 08/02/21 08/03/21 15:00 23:00 07:00 Intake Total 1080 ml 480 ml Balance 1080 ml 480 ml Current Medications: Meds: Current Medications Medications (Trade) Dose Ordered Sig/Vera Route PRN Reason Start Time Stop Time Status Last Admin Dose Admin Calcium Carbonate/ Glycine (Tums) 500 mg BID PO 07/25/21 09:00 08/02/21 19:53 Finasteride (Proscar) 5 mg DAILY PO 07/25/21 09:00 08/02/21 08:44 Lactobacillus Rhamnosus (Culturelle) 1 cap DAILY PO 07/25/21 09:00 08/02/21 08:44 Levetiracetam (Keppra) 1,000 mg 0800,1300 PO 07/24/21 22:00 08/02/21 12:15 Loperamide HCl (Imodium) 2 mg PRN DAILY PRN PO DIARRHEA 07/24/21 21:15 Magnesium Oxide (Magnesium Oxide) 400 mg BID PO 07/25/21 09:00 08/02/21 19:53 Olanzapine (ZyPREXA) 2.5 mg BID PO 07/24/21 22:00 08/02/21 19:52 Pantoprazole Sodium (Protonix) 40 mg DAILYAC PO 07/25/21 07:30 08/02/21 08:44 Primidone (Mysoline) 12.5 mg DAILY PO 07/25/21 09:00 08/02/21 17:19 DC 08/02/21 08:46 Melatonin (Melatonin) 6 mg HS PO 07/24/21 22:00 08/02/21 19:53 Acetaminophen (Tylenol) 650 mg PRN Q6HRS PRN PO MILD PAIN / TEMP > 100.3'F 07/24/21 21:45 07/24/21 22:15 Multi-Ingredient Ointment (Analgesic [place]) 1 nicol PRN QID PRN TP MUSCLE PAIN 07/24/21 21:45 Al Hydroxide/Mg Hydroxide (Mylanta Plus Xs) 15 ml PRN AFTMEALHC PRN PO DYSPEPSIA 07/24/21 21:45 Magnesium Hydroxide (Milk Of Magnesia) 2,400 mg PRN QHS PRN PO CONSTIPATION 07/24/21 21:45 Influenza Virus Vaccine Quadrival (Flulaval Quad 1448-0035 Syringe) 0.5 ml ONCE ONCE VAX IM 07/25/21 09:00 07/25/21 09:01 DC 07/25/21 14:41 Olanzapine (ZyPREXA ZYDIS) 2.5 mg PRN Q2HR PRN PO PSYCHOSIS 07/25/21 18:45 07/26/21 11:01 Mirtazapine (Remeron) 7.5 mg QHS PO 07/25/21 21:00 08/02/21 19:53 Sertraline HCl (Zoloft) 25 mg DAILY PO 07/26/21 09:00 07/28/21 10:01 DC 07/28/21 08:52 Sertraline HCl (Zoloft) 50 mg DAILY PO 07/29/21 09:00 07/31/21 15:00 DC 07/31/21 08:52 Vitamin D (Vitamin D3) 50,000 unit WEEKLY PO 07/29/21 16:00 07/29/21 16:00 Sertraline HCl (Zoloft) 75 mg DAILY PO 08/01/21 09:00 08/02/21 08:44 Primidone (Mysoline) 25 mg DAILY PO 08/03/21 09:00 I have reviewed the current psychotropics carefully including drug interactions. Risk benefit ratio favors no change other than as noted in my dictated progress note. Diagnosis: Problems: (1) Major depressive disorder, recurrent, severe with psychotic features (2) Impulse control disorder, unspecified (3) Anxiety disorder, unspecified (4) Dementia, vascular, with depression (5) Dementia, vascular, with delusions (6) Dementia in Alzheimer's disease with depression (7) Dementia in Alzheimer's disease with delusions (8) Major neurocognitive disorder (9) Dementia in Alzheimer's disease with early onset with behavioral disturbance ARON MULLER MD Aug 03, 2021 07:05
--- NOTE | 2021-08-03 07:16 | PDOC ---
Exam Note: Phillip Note: This note is a late entry for 08/02/2021 covers elements not covered in my initial note. Subjective: The patient was seen individually in the evening of 08/02/2021 with Valencia COTTON, discussed and reviewed the chart. The patient slept 9-1/4 hours previous night. He has had some tremors. Primidone was increased. I met with him in his room. Review of Systems: Impaired ambulation with walker. No CV, , pulmonary, eye system symptoms on review. Mental Status Exam: The patient is oriented to himself. Insight, judgment, recent and remote memory, attention and concentration, fund of knowledge is poor consistent with his diagnosis. Laboratory Data: Reviewed. Impression: Major depressive disorder, recurrent, severe with psychotic features. Major neurocognitive disorder, multifactorial with delusion, depression behavioral disturbance. Anxiety disorder unspecified. Impulse control disorder unspecified. Plan: No change from initial note. Primidone has been increased for his tremors. Assessment: Vital Signs/I&O: Vital Signs Date Time Temp Pulse Resp B/P (MAP) Pulse Ox O2 Delivery O2 Flow Rate FiO2 08/03/21 06:28 97.7 66 18 162/82 (108) 94 I & O 08/02/21 08/02/21 08/03/21 15:00 23:00 07:00 Intake Total 1080 ml 480 ml Balance 1080 ml 480 ml Current Medications: Meds: Current Medications Medications (Trade) Dose Ordered Sig/Vera Route PRN Reason Start Time Stop Time Status Last Admin Dose Admin Calcium Carbonate/ Glycine (Tums) 500 mg BID PO 07/25/21 09:00 08/02/21 19:53 Finasteride (Proscar) 5 mg DAILY PO 07/25/21 09:00 08/02/21 08:44 Lactobacillus Rhamnosus (Culturelle) 1 cap DAILY PO 07/25/21 09:00 08/02/21 08:44 Levetiracetam (Keppra) 1,000 mg 0800,1300 PO 07/24/21 22:00 08/02/21 12:15 Loperamide HCl (Imodium) 2 mg PRN DAILY PRN PO DIARRHEA 07/24/21 21:15 Magnesium Oxide (Magnesium Oxide) 400 mg BID PO 07/25/21 09:00 08/02/21 19:53 Olanzapine (ZyPREXA) 2.5 mg BID PO 07/24/21 22:00 08/02/21 19:52 Pantoprazole Sodium (Protonix) 40 mg DAILYAC PO 07/25/21 07:30 08/02/21 08:44 Primidone (Mysoline) 12.5 mg DAILY PO 07/25/21 09:00 08/02/21 17:19 DC 08/02/21 08:46 Melatonin (Melatonin) 6 mg HS PO 07/24/21 22:00 08/02/21 19:53 Acetaminophen (Tylenol) 650 mg PRN Q6HRS PRN PO MILD PAIN / TEMP > 100.3'F 07/24/21 21:45 07/24/21 22:15 Multi-Ingredient Ointment (Analgesic [place]) 1 nicol PRN QID PRN TP MUSCLE PAIN 07/24/21 21:45 Al Hydroxide/Mg Hydroxide (Mylanta Plus Xs) 15 ml PRN AFTMEALHC PRN PO DYSPEPSIA 07/24/21 21:45 Magnesium Hydroxide (Milk Of Magnesia) 2,400 mg PRN QHS PRN PO CONSTIPATION 07/24/21 21:45 Influenza Virus Vaccine Quadrival (Flulaval Quad 0500-0940 Syringe) 0.5 ml ONCE ONCE VAX IM 07/25/21 09:00 07/25/21 09:01 DC 07/25/21 14:41 Olanzapine (ZyPREXA ZYDIS) 2.5 mg PRN Q2HR PRN PO PSYCHOSIS 07/25/21 18:45 07/26/21 11:01 Mirtazapine (Remeron) 7.5 mg QHS PO 07/25/21 21:00 08/02/21 19:53 Sertraline HCl (Zoloft) 25 mg DAILY PO 07/26/21 09:00 07/28/21 10:01 DC 07/28/21 08:52 Sertraline HCl (Zoloft) 50 mg DAILY PO 07/29/21 09:00 07/31/21 15:00 DC 07/31/21 08:52 Vitamin D (Vitamin D3) 50,000 unit WEEKLY PO 07/29/21 16:00 07/29/21 16:00 Sertraline HCl (Zoloft) 75 mg DAILY PO 08/01/21 09:00 08/02/21 08:44 Primidone (Mysoline) 25 mg DAILY PO 08/03/21 09:00 I have reviewed the current psychotropics carefully including drug interactions. Risk benefit ratio favors no change other than as noted in my dictated progress note. Diagnosis: Problems: (1) Major depressive disorder, recurrent, severe with psychotic features (2) Impulse control disorder, unspecified (3) Anxiety disorder, unspecified (4) Dementia, vascular, with depression (5) Dementia, vascular, with delusions (6) Dementia in Alzheimer's disease with depression (7) Dementia in Alzheimer's disease with delusions (8) Major neurocognitive disorder (9) Dementia in Alzheimer's disease with early onset with behavioral disturbance ARON MULLER MD Aug 03, 2021 07:16
[2021-08-03] MEDS: PRIMIDONE 50 MG TABLET PO SCH ×2 (08:31→20:27)
[2021-08-03] MEDS: SERTRALINE 25 MG TABLET. PO SCH (08:31)
[2021-08-03] MEDS: OLANZapine 2.5 MG TABLET PO SCH ×2 (08:32→20:25)
[2021-08-03] MEDS: LACTOBACILLUS RHAMNOSUS GG 1 CAPSULE. PO SCH (08:32)
[2021-08-03] MEDS: MAGNESIUM OXIDE 400 MG TABLET PO SCH ×2 (08:32→20:25)
[2021-08-03] MEDS: FINASTERIDE 5 MG TABLET. PO SCH (08:32)
[2021-08-03] MEDS: PANTOPRAZOLE 40 MG TABLET. PO SCH (08:33)
[2021-08-03] MEDS: CALCIUM CARBONATE 500 MG TAB.CHEW PO SCH ×2 (08:33→20:25)
[2021-08-03] MEDS: levETIRAcetam 500 MG TABLET PO SCH ×2 (08:33→12:16)
[2021-08-03 14:59] VITALS: BP_SYST 137; BP_SYST 160; BP_DIAS 110; BP_DIAS 68
[2021-08-03] MEDS: MIRTAZAPINE 7.5 MG TABLET. PO SCH (20:25)
[2021-08-03] MEDS: MELATONIN 3 MG TABLET PO SCH (20:25)
--- NOTE | 2021-08-03 20:50 | PDOC ---
Exam Note: Phillip Note: Please also refer to the separate dictated note~for this date of service dictated separately.~Patient seen individually. Discussed the patient with Nursing staff reviewed the chart.~Reviewed interim history and current functioning. Reviewed vital signs,~Labs/ Radiology~and current medications noted below. Continue current treatment with the changes noted in the dictated addendum note Assessment: Vital Signs/I&O: Vital Signs Date Time Temp Pulse Resp B/P (MAP) Pulse Ox O2 Delivery O2 Flow Rate FiO2 08/03/21 14:59 98.0 79 19 137/68 (91) 94 I & O 08/02/21 08/02/21 08/03/21 14:59 22:59 06:59 Intake Total 1080 ml 480 ml Balance 1080 ml 480 ml Current Medications: Meds: Current Medications Medications (Trade) Dose Ordered Sig/Vera Route PRN Reason Start Time Stop Time Status Last Admin Dose Admin Calcium Carbonate/ Glycine (Tums) 500 mg BID PO 07/25/21 09:00 08/03/21 20:25 Finasteride (Proscar) 5 mg DAILY PO 07/25/21 09:00 08/03/21 08:32 Lactobacillus Rhamnosus (Culturelle) 1 cap DAILY PO 07/25/21 09:00 08/03/21 08:32 Levetiracetam (Keppra) 1,000 mg 0800,1300 PO 07/24/21 22:00 08/03/21 12:16 Loperamide HCl (Imodium) 2 mg PRN DAILY PRN PO DIARRHEA 07/24/21 21:15 Magnesium Oxide (Magnesium Oxide) 400 mg BID PO 07/25/21 09:00 08/03/21 20:25 Olanzapine (ZyPREXA) 2.5 mg BID PO 07/24/21 22:00 08/03/21 20:25 Pantoprazole Sodium (Protonix) 40 mg DAILYAC PO 07/25/21 07:30 08/03/21 08:33 Primidone (Mysoline) 12.5 mg DAILY PO 07/25/21 09:00 08/02/21 17:19 DC 08/02/21 08:46 Melatonin (Melatonin) 6 mg HS PO 07/24/21 22:00 08/03/21 20:25 Acetaminophen (Tylenol) 650 mg PRN Q6HRS PRN PO MILD PAIN / TEMP > 100.3'F 07/24/21 21:45 07/24/21 22:15 Multi-Ingredient Ointment (Analgesic [place]) 1 nicol PRN QID PRN TP MUSCLE PAIN 07/24/21 21:45 Al Hydroxide/Mg Hydroxide (Mylanta Plus Xs) 15 ml PRN AFTMEALHC PRN PO DYSPEPSIA 07/24/21 21:45 Magnesium Hydroxide (Milk Of Magnesia) 2,400 mg PRN QHS PRN PO CONSTIPATION 07/24/21 21:45 Influenza Virus Vaccine Quadrival (Flulaval Quad Syringe) 0.5 ml ONCE ONCE VAX IM 07/25/21 09:00 07/25/21 09:01 DC 07/25/21 14:41 Olanzapine (ZyPREXA ZYDIS) 2.5 mg PRN Q2HR PRN PO PSYCHOSIS 07/25/21 18:45 07/26/21 11:01 Mirtazapine (Remeron) 7.5 mg QHS PO 07/25/21 21:00 08/03/21 20:25 Sertraline HCl (Zoloft) 25 mg DAILY PO 07/26/21 09:00 07/28/21 10:01 DC 07/28/21 08:52 Sertraline HCl (Zoloft) 50 mg DAILY PO 07/29/21 09:00 07/31/21 15:00 DC 07/31/21 08:52 Vitamin D (Vitamin D3) 50,000 unit WEEKLY PO 07/29/21 16:00 07/29/21 16:00 Sertraline HCl (Zoloft) 75 mg DAILY PO 08/01/21 09:00 08/03/21 08:31 Primidone (Mysoline) 25 mg DAILY PO 08/03/21 09:00 08/03/21 08:31 Primidone (Mysoline) 25 mg QHS PO 08/03/21 21:00 08/03/21 20:27 Current Medications Medications (Trade) Dose Ordered Sig/Vera Route PRN Reason Start Time Stop Time Status Last Admin Dose Admin Primidone (Mysoline) 25 mg DAILY PO 08/03/21 09:00 08/03/21 08:31 Primidone (Mysoline) 25 mg QHS PO 08/03/21 21:00 08/03/21 20:27 I have reviewed the current psychotropics carefully including drug interactions. Risk benefit ratio favors no change other than as noted in my dictated progress note. Diagnosis: Problems: (1) Major depressive disorder, recurrent, severe with psychotic features (2) Impulse control disorder, unspecified (3) Anxiety disorder, unspecified (4) Dementia, vascular, with depression (5) Dementia, vascular, with delusions (6) Dementia in Alzheimer's disease with depression (7) Dementia in Alzheimer's disease with delusions (8) Major neurocognitive disorder (9) Dementia in Alzheimer's disease with early onset with behavioral disturbance ARON MULLER MD Aug 03, 2021 20:50
--- NOTE | 2021-08-04 05:28 | PN ---
DATE: 08/03/2021 SUBJECTIVE: The patient denies any new medical or neurological complaints. According to nursing staff, the tremor has been somewhat better than before after increasing his primidone dose from 12.5 mg to 25 mg daily. He denies headaches, visual disturbances, nausea, vomiting, chest pain, shortness of breath or palpitation, dysarthria or dysphagia. OBJECTIVE: GENERAL: Well-developed, well-nourished male in no acute distress. VITAL SIGNS: Blood pressure is 137/68, respiratory rate 19, pulse is 79, temperature 98, oxygen saturation 94% on room air. HEENT: Normocephalic and atraumatic. otherwise unremarkable. NECK: Supple, negative for carotid bruit, lymphadenopathy or thyromegaly. LUNGS: Clear to A and P. CARDIOVASCULAR: Regular rate and rhythm, normal S1, S2. ABDOMEN: Soft. Bowel sounds positive. EXTREMITIES: Negative for cyanosis, clubbing or pedal edema. NEUROLOGIC: Mental status: The patient is alert and oriented x2. The speech is fluent. There is no language dysfunction. Memory, judgment and abstracting thinking are fair. The patient denies hallucination or delusion. He denies any current suicidal ideation. Cranial nerves are intact. No focal muscle bulk wasting. The tone is normal. The strength is 4/5 throughout. The patient has mild postural and kinetic tremors after increasing the primidone dose. Deep tendon reflexes were symmetric and hypoactive with absent Achilles responses. Gait and coordination are normal. IMPRESSION: 1. Postural and kinetic tremor may represent essential tremor versus senile tremor. 2. Multiple medical problems include hypertension, hyperlipidemia, seizure disorder, gastroesophageal reflux disease, and dementia. 3. Multiple psychiatric problems include depressions, anxiety disorder and a history of current suicidal ideations. RECOMMENDATIONS: 1. Continue with primidone at 25 mg b.i.d. 2. Continue with current medical and psychiatric care and current medications. KEILA/JYOTHI DR: Rayo TID: [id number]
[2021-08-04 05:40] VITALS: BP 159/88
--- NOTE | 2021-08-04 07:22 | CONS ---
DATE OF CONSULTATION: 08/02/2021 NEUROLOGY CONSULT REFERRING PHYSICIAN: Dr. Peralta. REASON FOR CONSULTATION: History of seizure disorder and tremor. HISTORY OF PRESENT ILLNESS: This is a 81-year-old right-handed male who was admitted on 07/24/2021 on account of aggressive behavior at [facility]. The patient was first evaluated in the Emergency Room at [facility] on account of increasing agitation, psychotic behavior, and multiple announcements of suicidal ideations. The patient has been aggressive against the nursing staff in the prison. Neuro consult was requested because the patient has longstanding history of seizure and also tremor of the upper extremities. He has been on primidone at 12.5 mg and I was asked to evaluate his tremor and treat it accordingly. The patient has had history of dementia and unable to provide detailed informations about his seizure or tremor, but he stated his tremor has been present for many years and aggravated by being upset or using his hands as when he feeds himself. Currently, he denies headaches, visual disturbances, nausea, vomiting, chest pain, shortness of breath or palpitation, dysarthria or dysphagia. PAST MEDICAL HISTORY: Significant for gastroesophageal reflux disease, benign prostate hypertrophy, seizure disorder of unknown etiology, obstructive sleep apnea, hyperlipidemia, hypertension, hypoxia, and generalized weakness with kidney failure. PAST PSYCHIATRIC PROBLEMS: Include depression, anxiety, and dementia. SOCIAL HISTORY: There is no history of smoking, alcohol drinking or illicit drug use. FAMILY HISTORY: Noncontributory. CURRENT MEDICATIONS: Primidone 12.5 mg at bedtime, sertraline 75 mg daily, vitamin D 50,000 units weekly, Remeron 7.5 mg at bedtime, olanzapine 2.5 p.o. every 2 hours p.r.n. for agitation, magnesium oxide 400 mg b.i.d., Proscar 5 mg daily, calcium 500 mg p.o. daily, pantoprazole 40 mg daily, melatonin 6 mg nightly, Keppra 1000 mg twice daily, Tylenol, and Imodium for diarrhea. ALLERGIES: ELM TREE, TREE AND SHRUB POLLEN. REVIEW OF SYSTEMS: A 10-point review of system was performed as mentioned above in history of present illness. PHYSICAL EXAMINATION: GENERAL: Well-developed, well-nourished male in no acute distress. He weighs 68.9 kilos. VITAL SIGNS: Blood pressure 162/82, respiratory rate 18, pulse is 66 and regular, temperature 97.7, oxygen saturation 94% on room air. HEENT: Normocephalic, atraumatic, otherwise unremarkable. NECK: Supple, negative for carotid bruit, lymphadenopathy or thyromegaly. LUNGS: Clear to A and P. CARDIOVASCULAR: Regular rate and rhythm, normal S1, S2. There is no S3, S4 or murmur. ABDOMEN: Soft. Bowel sounds positive. EXTREMITIES: Negative for cyanosis, clubbing or pedal edema. NEUROLOGIC: 1. Mental status: The patient is alert and oriented x 1. Speech is fluent. There is no language dysfunction. Memory, judgment and abstracting thinking are fair. The patient denies hallucination or delusion. 2. Cranial nerves: Pupils are equal and reactive to light and accommodation. The extraocular movements are intact. There is no nystagmus. There is no facial motor or sensory deficits. Hearing is intact bilaterally. The palate is elevated symmetrically. Sternocleidomastoid muscles are powerful bilaterally. The patient shrugs his shoulders symmetrically, protrudes his tongue in the midline without fasciculation or atrophy. 3. Motor examination: No focal muscle bulk wasting. The tone is normal. The strength is 4/5 throughout. The patient has postural and kinetic tremor of both upper extremities, more prominent on the right side. Sensory examination revealed normal pinprick and light touch senses throughout. Deep tendon reflexes were symmetric and hypoactive with absent Achilles responses. Gait and coordination are normal. LABORATORY DATA: From 07/25/2021 revealed white blood cells of 7.8 thousand, hemoglobin 12.7, hematocrit 39.6, platelet count 441,000. Chemistry revealed sodium of 139, potassium 3.7, chloride 101, CO2 of 28, BUN 16, creatinine 0.7, glucose 112. Hemoglobin A1c is 5.5. Iron is low at 30. Liver enzymes are not elevated. Lipid profile revealed elevated LDL at 112 ____. Vitamin B12 is normal at 503 and vitamin D is 29.1. Thyroid profile is normal. RPR nonreactive. The patient has history of COVID-19 infection in the past. IMPRESSION: 1. Postural and kinetic tremors of the upper extremities, may represent senile tremor versus essential tremor. The patient has been on small dose of primidone at 12.5 mg. Seizure disorder. 2. Multiple medical problems include hypertension, gastroesophageal reflux disease, hyperlipidemia, vitamin D deficiency, and dementia. 3. Multiple psychiatric problems including depression, anxiety disorder. RECOMMENDATIONS: 1. Increase the primidone to 25 mg a.m. 2. Continue with current medical and psychiatric care. 3. Continue with current home medications. KHARI DR: Rayo TID: [id number]
[2021-08-04 07:59] LABS: BASO % 1 % (0-3); EOS # 0.4 x10^3/uL (0.0-0.7); EOS % 5 % (0-3); HEMATOCRIT 36.4 % (39.0-53.0); HEMOGLOBIN 11.5 g/dL (13.0-17.5); LYMPH # 1.2 x10^3/uL (1.0-4.8); LYMPH % 16 % (24-48); MEAN CORPUSCULAR HEMOGLOBIN 27 pg (25-35); MEAN CORPUSCULAR HGB CONC 32 g/dL (31-37); MEAN CORPUSCULAR VOLUME 85 fL (79-100); MONO # 0.7 x10^3/uL (0.0-1.1); MONO % 9 % (0-9); NEUT # 5.2 x10^3uL (1.8-7.7); NEUT % 69 % (31-73); PLATELET COUNT 339 x10^3/uL (140-400); RED CELL DISTRIBUTION WIDTH 15.3 % (11.5-14.5); WHITE BLOOD COUNT 7.5 x10^3/uL (4.0-11.0)
[2021-08-04 08:19] LABS: ALBUMIN 2.9 g/dL (3.4-5.0); ALBUMIN/GLOBULIN RATIO 0.9 (1.0-1.7); CALCIUM 8.6 mg/dL (8.5-10.1); CREATININE 0.5 mg/dL (0.7-1.3); GFR 160.4; POTASSIUM 3.6 mmol/L (3.5-5.1); TOTAL BILIRUBIN 0.3 mg/dL (0.2-1.0)
[2021-08-04] MEDS: LACTOBACILLUS RHAMNOSUS GG 1 CAPSULE. PO SCH (08:19)
[2021-08-04] MEDS: SERTRALINE 25 MG TABLET. PO SCH (08:19)
[2021-08-04] MEDS: levETIRAcetam 500 MG TABLET PO SCH ×2 (08:19→12:08)
[2021-08-04] MEDS: MAGNESIUM OXIDE 400 MG TABLET PO SCH ×2 (08:19→19:51)
[2021-08-04] MEDS: FINASTERIDE 5 MG TABLET. PO SCH (08:19)
[2021-08-04] MEDS: OLANZapine 2.5 MG TABLET PO SCH ×2 (08:20→19:51)
[2021-08-04] MEDS: CALCIUM CARBONATE 500 MG TAB.CHEW PO SCH ×2 (08:20→19:51)
[2021-08-04] MEDS: PANTOPRAZOLE 40 MG TABLET. PO SCH (08:20)
[2021-08-04] MEDS: PRIMIDONE 50 MG TABLET PO SCH ×2 (08:21→19:51)
[2021-08-04 15:41] VITALS: BP 142/81
[2021-08-04] MEDS: MELATONIN 3 MG TABLET PO SCH (19:51)
[2021-08-04] MEDS: MIRTAZAPINE 7.5 MG TABLET. PO SCH (19:51)
--- NOTE | 2021-08-04 20:37 | PDOC ---
Exam Note: Phillip Note: Please also refer to the separate dictated note~for this date of service dictated separately.~Patient seen individually. Discussed the patient with Nursing staff reviewed the chart.~Reviewed interim history and current functioning. Reviewed vital signs,~Labs/ Radiology~and current medications noted below. Continue current treatment with the changes noted in the dictated addendum note Assessment: Vital Signs/I&O: Vital Signs Date Time Temp Pulse Resp B/P (MAP) Pulse Ox O2 Delivery O2 Flow Rate FiO2 08/04/21 15:41 97.5 92 18 142/81 (101) 97 I & O 08/03/21 08/03/21 08/04/21 15:00 23:00 07:00 Intake Total 600 ml 600 ml Balance 600 ml 600 ml Labs: Laboratory Tests Test 08/04/21 07:15 White Blood Count 7.5 x10^3/uL (4.0-11.0) Red Blood Count 4.30 x10^6/uL (4.30-5.70) Hemoglobin 11.5 g/dL (13.0-17.5) L Hematocrit 36.4 % (39.0-53.0) L Mean Corpuscular Volume 85 fL (79-100) Mean Corpuscular Hemoglobin 27 pg (25-35) Mean Corpuscular Hemoglobin Concent 32 g/dL (31-37) Red Cell Distribution Width 15.3 % (11.5-14.5) H Platelet Count 339 x10^3/uL (140-400) Neutrophils (%) (Auto) 69 % (31-73) Lymphocytes (%) (Auto) 16 % (24-48) L Monocytes (%) (Auto) 9 % (0-9) Eosinophils (%) (Auto) 5 % (0-3) H Basophils (%) (Auto) 1 % (0-3) Neutrophils # (Auto) 5.2 x10^3uL (1.8-7.7) Lymphocytes # (Auto) 1.2 x10^3/uL (1.0-4.8) Monocytes # (Auto) 0.7 x10^3/uL (0.0-1.1) Eosinophils # (Auto) 0.4 x10^3/uL (0.0-0.7) Basophils # (Auto) 0.0 x10^3/uL (0.0-0.2) Sodium Level 143 mmol/L (136-145) Potassium Level 3.6 mmol/L (3.5-5.1) Chloride Level 105 mmol/L (98-107) Carbon Dioxide Level 28 mmol/L (21-32) Anion Gap 10 (6-14) Blood Urea Nitrogen 12 mg/dL (8-26) Creatinine 0.5 mg/dL (0.7-1.3) L Estimated GFR (Cockcroft-Gault) 160.4 BUN/Creatinine Ratio 24 (6-20) H Glucose Level 90 mg/dL (70-99) Calcium Level 8.6 mg/dL (8.5-10.1) Total Bilirubin 0.3 mg/dL (0.2-1.0) Aspartate Amino Transferase (AST) 19 U/L (15-37) Alanine Aminotransferase (ALT) 15 U/L (16-63) L Alkaline Phosphatase 73 U/L (46-116) Total Protein 6.0 g/dL (6.4-8.2) L Albumin 2.9 g/dL (3.4-5.0) L Albumin/Globulin Ratio 0.9 (1.0-1.7) L Current Medications: Meds: Laboratory Tests Test 08/04/21 07:15 White Blood Count 7.5 x10^3/uL Red Blood Count 4.30 x10^6/uL Hemoglobin 11.5 g/dL Hematocrit 36.4 % Mean Corpuscular Volume 85 fL Mean Corpuscular Hemoglobin 27 pg Mean Corpuscular Hemoglobin Concent 32 g/dL Red Cell Distribution Width 15.3 % Platelet Count 339 x10^3/uL Neutrophils (%) (Auto) 69 % Lymphocytes (%) (Auto) 16 % Monocytes (%) (Auto) 9 % Eosinophils (%) (Auto) 5 % Basophils (%) (Auto) 1 % Neutrophils # (Auto) 5.2 x10^3uL Lymphocytes # (Auto) 1.2 x10^3/uL Monocytes # (Auto) 0.7 x10^3/uL Eosinophils # (Auto) 0.4 x10^3/uL Basophils # (Auto) 0.0 x10^3/uL Sodium Level 143 mmol/L Potassium Level 3.6 mmol/L Chloride Level 105 mmol/L Carbon Dioxide Level 28 mmol/L Anion Gap 10 Blood Urea Nitrogen 12 mg/dL Creatinine 0.5 mg/dL Estimated GFR (Cockcroft-Gault) 160.4 BUN/Creatinine Ratio 24 Glucose Level 90 mg/dL Calcium Level 8.6 mg/dL Total Bilirubin 0.3 mg/dL Aspartate Amino Transf (AST/SGOT) 19 U/L Alanine Aminotransferase (ALT/SGPT) 15 U/L Alkaline Phosphatase 73 U/L Total Protein 6.0 g/dL Albumin 2.9 g/dL Albumin/Globulin Ratio 0.9 Current Medications Medications (Trade) Dose Ordered Sig/Vera Route PRN Reason Start Time Stop Time Status Last Admin Dose Admin Calcium Carbonate/ Glycine (Tums) 500 mg BID PO 07/25/21 09:00 08/04/21 19:51 Finasteride (Proscar) 5 mg DAILY PO 07/25/21 09:00 08/04/21 08:19 Lactobacillus Rhamnosus (Culturelle) 1 cap DAILY PO 07/25/21 09:00 08/04/21 08:19 Levetiracetam (Keppra) 1,000 mg 0800,1300 PO 07/24/21 22:00 08/04/21 12:08 Loperamide HCl (Imodium) 2 mg PRN DAILY PRN PO DIARRHEA 07/24/21 21:15 Magnesium Oxide (Magnesium Oxide) 400 mg BID PO 07/25/21 09:00 08/04/21 19:51 Olanzapine (ZyPREXA) 2.5 mg BID PO 07/24/21 22:00 08/04/21 19:51 Pantoprazole Sodium (Protonix) 40 mg DAILYAC PO 07/25/21 07:30 08/04/21 08:20 Primidone (Mysoline) 12.5 mg DAILY PO 07/25/21 09:00 08/02/21 17:19 DC 08/02/21 08:46 Melatonin (Melatonin) 6 mg HS PO 07/24/21 22:00 08/04/21 19:51 Acetaminophen (Tylenol) 650 mg PRN Q6HRS PRN PO MILD PAIN / TEMP > 100.3'F 07/24/21 21:45 07/24/21 22:15 Multi-Ingredient Ointment (Analgesic [place]) 1 nicol PRN QID PRN TP MUSCLE PAIN 07/24/21 21:45 Al Hydroxide/Mg Hydroxide (Mylanta Plus Xs) 15 ml PRN AFTMEALHC PRN PO DYSPEPSIA 07/24/21 21:45 Magnesium Hydroxide (Milk Of Magnesia) 2,400 mg PRN QHS PRN PO CONSTIPATION 07/24/21 21:45 Influenza Virus Vaccine Quadrival (Flulaval Quad [id number] Syringe) 0.5 ml ONCE ONCE VAX IM 07/25/21 09:00 07/25/21 09:01 DC 07/25/21 14:41 Olanzapine (ZyPREXA ZYDIS) 2.5 mg PRN Q2HR PRN PO PSYCHOSIS 07/25/21 18:45 07/26/21 11:01 Mirtazapine (Remeron) 7.5 mg QHS PO 07/25/21 21:00 08/04/21 19:51 Sertraline HCl (Zoloft) 25 mg DAILY PO 07/26/21 09:00 07/28/21 10:01 DC 07/28/21 08:52 Sertraline HCl (Zoloft) 50 mg DAILY PO 07/29/21 09:00 07/31/21 15:00 DC 07/31/21 08:52 Vitamin D (Vitamin D3) 50,000 unit WEEKLY PO 07/29/21 16:00 07/29/21 16:00 Sertraline HCl (Zoloft) 75 mg DAILY PO 08/01/21 09:00 08/04/21 08:19 Primidone (Mysoline) 25 mg DAILY PO 08/03/21 09:00 08/04/21 08:21 Primidone (Mysoline) 25 mg QHS PO 08/03/21 21:00 08/04/21 19:51 Current Medications Medications (Trade) Dose Ordered Sig/Vera Route PRN Reason Start Time Stop Time Status Last Admin Dose Admin Primidone (Mysoline) 25 mg QHS PO 08/03/21 21:00 08/04/21 19:51 I have reviewed the current psychotropics carefully including drug interactions. Risk benefit ratio favors no change other than as noted in my dictated progress note. 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
[2021-08-05 05:56] VITALS: BP 161/77
--- NOTE | 2021-08-05 08:19 | PDOC ---
Exam Note: Phillip Note: This note is a late entry for 08/03/2021 covers elements not covered in my initial note. Subjective: The patient was seen individually in the evening of 08/03/2021 with Marly COTTON, discussed and reviewed the chart. The patient slept 5-3/4 hours previous night. I met with the patient in his room. He was lying in bed with no shirt on and the covers were only covering him below his shoulders. Nursing staff were to give him some extra covers after I talked to him. He has been disorganized, compliant with medications. Review of Systems: Impaired ambulation with walker. No CV, , pulmonary, eye system symptoms on review. Mental Status Exam: The patient is oriented to himself. I questioned the patient on him lying half naked in bed. He said he felt comfortable Insight, judgment, recent and remote memory, attention and concentration, fund of knowledge is poor consistent with his diagnosis. Laboratory Data: Reviewed. Impression: Major depressive disorder, recurrent, severe with psychotic features. Major neurocognitive disorder, multifactorial with delusion, depression behavioral disturbance. Anxiety disorder unspecified. Impulse control disorder unspecified. Plan: No change from initial note. Assessment: Vital Signs/I&O: Vital Signs Date Time Temp Pulse Resp B/P (MAP) Pulse Ox O2 Delivery O2 Flow Rate FiO2 08/05/21 05:56 97.6 64 16 161/77 (105) 95 I & O 08/04/21 08/04/21 08/05/21 15:00 23:00 07:00 Intake Total 360 ml 480 ml Balance 360 ml 480 ml Current Medications: Meds: Current Medications Medications (Trade) Dose Ordered Sig/Vera Route PRN Reason Start Time Stop Time Status Last Admin Dose Admin Calcium Carbonate/ Glycine (Tums) 500 mg BID PO 07/25/21 09:00 08/04/21 19:51 Finasteride (Proscar) 5 mg DAILY PO 07/25/21 09:00 08/04/21 08:19 Lactobacillus Rhamnosus (Culturelle) 1 cap DAILY PO 07/25/21 09:00 08/04/21 08:19 Levetiracetam (Keppra) 1,000 mg 0800,1300 PO 07/24/21 22:00 08/04/21 12:08 Loperamide HCl (Imodium) 2 mg PRN DAILY PRN PO DIARRHEA 12/1/21 21:15 Magnesium Oxide (Magnesium Oxide) 400 mg BID PO 07/25/21 09:00 08/04/21 19:51 Olanzapine (ZyPREXA) 2.5 mg BID PO 07/24/21 22:00 08/04/21 19:51 Pantoprazole Sodium (Protonix) 40 mg DAILYAC PO 07/25/21 07:30 08/04/21 08:20 Primidone (Mysoline) 12.5 mg DAILY PO 07/25/21 09:00 08/02/21 17:19 DC 08/02/21 08:46 Melatonin (Melatonin) 6 mg HS PO 07/24/21 22:00 08/04/21 19:51 Acetaminophen (Tylenol) 650 mg PRN Q6HRS PRN PO MILD PAIN / TEMP > 100.3'F 07/24/21 21:45 07/24/21 22:15 Multi-Ingredient Ointment (Analgesic [place]) 1 nicol PRN QID PRN TP MUSCLE PAIN 07/24/21 21:45 Al Hydroxide/Mg Hydroxide (Mylanta Plus Xs) 15 ml PRN AFTMEALHC PRN PO DYSPEPSIA 07/24/21 21:45 Magnesium Hydroxide (Milk Of Magnesia) 2,400 mg PRN QHS PRN PO CONSTIPATION 07/24/21 21:45 Influenza Virus Vaccine Quadrival (Flulaval Quad [id number] Syringe) 0.5 ml ONCE ONCE VAX IM 07/25/21 09:00 07/25/21 09:01 DC 07/25/21 14:41 Olanzapine (ZyPREXA ZYDIS) 2.5 mg PRN Q2HR PRN PO PSYCHOSIS 07/25/21 18:45 07/26/21 11:01 Mirtazapine (Remeron) 7.5 mg QHS PO 07/25/21 21:00 08/04/21 19:51 Sertraline HCl (Zoloft) 25 mg DAILY PO 07/26/21 09:00 07/28/21 10:01 DC 07/28/21 08:52 Sertraline HCl (Zoloft) 50 mg DAILY PO 07/29/21 09:00 07/31/21 15:00 DC 07/31/21 08:52 Vitamin D (Vitamin D3) 50,000 unit WEEKLY PO 07/29/21 16:00 07/29/21 16:00 Sertraline HCl (Zoloft) 75 mg DAILY PO 08/01/21 09:00 08/04/21 08:19 Primidone (Mysoline) 25 mg DAILY PO 08/03/21 09:00 08/04/21 08:21 Primidone (Mysoline) 25 mg QHS PO 08/03/21 21:00 08/04/21 19:51 I have reviewed the current psychotropics carefully including drug interactions. Risk benefit ratio favors no change other than as noted in my dictated progress note. 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
[2021-08-05] MEDS: levETIRAcetam 500 MG TABLET PO SCH ×2 (08:22→12:10)
[2021-08-05] MEDS: SERTRALINE 25 MG TABLET. PO SCH (08:22)
[2021-08-05] MEDS: CALCIUM CARBONATE 500 MG TAB.CHEW PO SCH ×2 (08:22→20:29)
[2021-08-05] MEDS: FINASTERIDE 5 MG TABLET. PO SCH (08:22)
[2021-08-05] MEDS: LACTOBACILLUS RHAMNOSUS GG 1 CAPSULE. PO SCH (08:22)
[2021-08-05] MEDS: PANTOPRAZOLE 40 MG TABLET. PO SCH (08:23)
[2021-08-05] MEDS: MAGNESIUM OXIDE 400 MG TABLET PO SCH ×2 (08:23→20:29)
[2021-08-05] MEDS: OLANZapine 2.5 MG TABLET PO SCH ×2 (08:23→20:29)
[2021-08-05] MEDS: CHOLECALCIFEROL (VITAMIN D3) 50,000 UNIT CAPSULE PO SCH (08:23)
[2021-08-05] MEDS: PRIMIDONE 50 MG TABLET PO SCH ×2 (08:24→20:29)
--- NOTE | 2021-08-05 08:35 | PDOC ---
Exam Note: Phillip Note: This note is a late entry for 08/04/2021 covers elements not covered in my initial note. Subjective: The patient was seen individually in the evening of 08/04/2021 with Marly COTTON, discussed and reviewed the chart. The patient slept 6-3/4 hours previous night. He is compliant with medications, somewhat withdrawn. I met with him in his room. He remains confused. Review of Systems: Impaired ambulation with walker. No CV, , pulmonary, eye system symptoms on review. Mental Status Exam: The patient is oriented to himself. Insight, judgment, recent and remote memory, attention and concentration, fund of knowledge is poor consistent with his diagnosis. Reliability poor. Laboratory Data: Reviewed. Impression: Major depressive disorder, recurrent, severe with psychotic features. Major neurocognitive disorder, multifactorial with delusion, depression behavioral disturbance. Anxiety disorder unspecified. Impulse control disorder unspecified. Plan: No change from initial note. Assessment: Vital Signs/I&O: Vital Signs Date Time Temp Pulse Resp B/P (MAP) Pulse Ox O2 Delivery O2 Flow Rate FiO2 08/05/21 05:56 97.6 64 16 161/77 (105) 95 I & O 08/04/21 08/04/21 08/05/21 15:00 23:00 07:00 Intake Total 360 ml 480 ml Balance 360 ml 480 ml Current Medications: Meds: Current Medications Medications (Trade) Dose Ordered Sig/Vera Route PRN Reason Start Time Stop Time Status Last Admin Dose Admin Calcium Carbonate/ Glycine (Tums) 500 mg BID PO 07/25/21 09:00 08/05/21 08:22 Finasteride (Proscar) 5 mg DAILY PO 07/25/21 09:00 08/05/21 08:22 Lactobacillus Rhamnosus (Culturelle) 1 cap DAILY PO 07/25/21 09:00 08/05/21 08:22 Levetiracetam (Keppra) 1,000 mg 0800,1300 PO 07/24/21 22:00 08/05/21 08:22 Loperamide HCl (Imodium) 2 mg PRN DAILY PRN PO DIARRHEA 07/24/21 21:15 Magnesium Oxide (Magnesium Oxide) 400 mg BID PO 07/25/21 09:00 08/05/21 08:23 Olanzapine (ZyPREXA) 2.5 mg BID PO 07/24/21 22:00 08/05/21 08:23 Pantoprazole Sodium (Protonix) 40 mg DAILYAC PO 07/25/21 07:30 08/05/21 08:23 Primidone (Mysoline) 12.5 mg DAILY PO 07/25/21 09:00 08/02/21 17:19 DC 08/02/21 08:46 Melatonin (Melatonin) 6 mg HS PO 07/24/21 22:00 08/04/21 19:51 Acetaminophen (Tylenol) 650 mg PRN Q6HRS PRN PO MILD PAIN / TEMP > 100.3'F 07/24/21 21:45 07/24/21 22:15 Multi-Ingredient Ointment (Analgesic [place]) 1 nicol PRN QID PRN TP MUSCLE PAIN 07/24/21 21:45 Al Hydroxide/Mg Hydroxide (Mylanta Plus Xs) 15 ml PRN AFTMEALHC PRN PO DYSPEPSIA 07/24/21 21:45 Magnesium Hydroxide (Milk Of Magnesia) 2,400 mg PRN QHS PRN PO CONSTIPATION 07/24/21 21:45 Influenza Virus Vaccine Quadrival (Flulaval Quad [id number] Syringe) 0.5 ml ONCE ONCE VAX IM 07/25/21 09:00 07/25/21 09:01 DC 07/25/21 14:41 Olanzapine (ZyPREXA ZYDIS) 2.5 mg PRN Q2HR PRN PO PSYCHOSIS 07/25/21 18:45 07/26/21 11:01 Mirtazapine (Remeron) 7.5 mg QHS PO 07/25/21 21:00 08/04/21 19:51 Sertraline HCl (Zoloft) 25 mg DAILY PO 07/26/21 09:00 07/28/21 10:01 DC 07/28/21 08:52 Sertraline HCl (Zoloft) 50 mg DAILY PO 07/29/21 09:00 07/31/21 15:00 DC 07/31/21 08:52 Vitamin D (Vitamin D3) 50,000 unit WEEKLY PO 07/29/21 16:00 08/05/21 08:23 Sertraline HCl (Zoloft) 75 mg DAILY PO 08/01/21 09:00 08/05/21 08:22 Primidone (Mysoline) 25 mg DAILY PO 08/03/21 09:00 08/05/21 08:24 Primidone (Mysoline) 25 mg QHS PO 08/03/21 21:00 08/04/21 19:51 I have reviewed the current psychotropics carefully including drug interactions. Risk benefit ratio favors no change other than as noted in my dictated progress note. 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
[2021-08-05 15:45] VITALS: BP 141/65
--- NOTE | 2021-08-05 20:08 | PDOC ---
Exam Note: Phillip Note: Please also refer to the separate dictated note~for this date of service dictated separately.~Patient seen individually. Discussed the patient with Nursing staff reviewed the chart.~Reviewed interim history and current functioning. Reviewed vital signs,~Labs/ Radiology~and current medications noted below. Continue current treatment with the changes noted in the dictated addendum note Assessment: Vital Signs/I&O: Vital Signs Date Time Temp Pulse Resp B/P (MAP) Pulse Ox O2 Delivery O2 Flow Rate FiO2 08/05/21 15:45 98.0 58 16 141/65 (90) 93 Room Air I & O 08/04/21 08/04/21 08/05/21 14:59 22:59 06:59 Intake Total 360 ml 480 ml Balance 360 ml 480 ml Current Medications: Meds: Current Medications Medications (Trade) Dose Ordered Sig/Vera Route PRN Reason Start Time Stop Time Status Last Admin Dose Admin Calcium Carbonate/ Glycine (Tums) 500 mg BID PO 07/25/21 09:00 08/05/21 08:22 Finasteride (Proscar) 5 mg DAILY PO 07/25/21 09:00 08/05/21 08:22 Lactobacillus Rhamnosus (Culturelle) 1 cap DAILY PO 07/25/21 09:00 08/05/21 08:22 Levetiracetam (Keppra) 1,000 mg 0800,1300 PO 07/24/21 22:00 08/05/21 12:10 Loperamide HCl (Imodium) 2 mg PRN DAILY PRN PO DIARRHEA 07/24/21 21:15 Magnesium Oxide (Magnesium Oxide) 400 mg BID PO 07/25/21 09:00 08/05/21 08:23 Olanzapine (ZyPREXA) 2.5 mg BID PO 07/24/21 22:00 08/05/21 08:23 Pantoprazole Sodium (Protonix) 40 mg DAILYAC PO 07/25/21 07:30 08/05/21 08:23 Primidone (Mysoline) 12.5 mg DAILY PO 07/25/21 09:00 08/02/21 17:19 DC 08/02/21 08:46 Melatonin (Melatonin) 6 mg HS PO 07/24/21 22:00 08/04/21 19:51 Acetaminophen (Tylenol) 650 mg PRN Q6HRS PRN PO MILD PAIN / TEMP > 100.3'F 07/24/21 21:45 07/24/21 22:15 Multi-Ingredient Ointment (Analgesic [place]) 1 nicol PRN QID PRN TP MUSCLE PAIN 07/24/21 21:45 Al Hydroxide/Mg Hydroxide (Mylanta Plus Xs) 15 ml PRN AFTMEALHC PRN PO DYSPEPSIA 07/24/21 21:45 Magnesium Hydroxide (Milk Of Magnesia) 2,400 mg PRN QHS PRN PO CONSTIPATION 07/24/21 21:45 Influenza Virus Vaccine Quadrival (Flulaval Quad [id number] Syringe) 0.5 ml ONCE ONCE VAX IM 07/25/21 09:00 07/25/21 09:01 DC 07/25/21 14:41 Olanzapine (ZyPREXA ZYDIS) 2.5 mg PRN Q2HR PRN PO PSYCHOSIS 07/25/21 18:45 07/26/21 11:01 Mirtazapine (Remeron) 7.5 mg QHS PO 07/25/21 21:00 08/04/21 19:51 Sertraline HCl (Zoloft) 25 mg DAILY PO 07/26/21 09:00 07/28/21 10:01 DC 07/28/21 08:52 Sertraline HCl (Zoloft) 50 mg DAILY PO 07/29/21 09:00 07/31/21 15:00 DC 07/31/21 08:52 Vitamin D (Vitamin D3) 50,000 unit WEEKLY PO 07/29/21 16:00 08/05/21 08:23 Sertraline HCl (Zoloft) 75 mg DAILY PO 08/01/21 09:00 08/05/21 08:22 Primidone (Mysoline) 25 mg DAILY PO 08/03/21 09:00 08/05/21 08:24 Primidone (Mysoline) 25 mg QHS PO 08/03/21 21:00 08/04/21 19:51 I have reviewed the current psychotropics carefully including drug interactions. Risk benefit ratio favors no change other than as noted in my dictated progress note. 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
[2021-08-05] MEDS: MELATONIN 3 MG TABLET PO SCH (20:28)
[2021-08-05] MEDS: MIRTAZAPINE 7.5 MG TABLET. PO SCH (20:29)
[2021-08-06 06:01] VITALS: BP 163/85
--- NOTE | 2021-08-06 06:45 | PDOC ---
Exam Note: Phillip Note: This note is a late entry for 08/05/2021 covers elements not covered in my initial note. Subjective: The patient was seen individually in the evening of 08/05/2021 with Marly COTTON, discussed and reviewed the chart. The patient slept 7-3/4 hours previous night. I met with him in his room. He has been withdrawn, confused. He is otherwise pleasant and interactive, greeted me when I went to visit him in his room. Review of Systems: Impaired ambulation with walker. No CV, , pulmonary, eye system symptoms on review. Mental Status Exam: The patient is oriented to himself. Insight, judgment, recent and remote memory, attention and concentration, fund of knowledge is poor consistent with his diagnosis. Reliability poor. Laboratory Data: Reviewed. Impression: Major depressive disorder, recurrent, severe with psychotic features. Major neurocognitive disorder, multifactorial with delusion, depression behavioral disturbance. Anxiety disorder unspecified. Impulse control disorder unspecified. Plan: No change from initial note. Assessment: Vital Signs/I&O: Vital Signs Date Time Temp Pulse Resp B/P (MAP) Pulse Ox O2 Delivery O2 Flow Rate FiO2 08/06/21 06:01 98.9 64 20 163/85 (111) 91 08/05/21 15:45 Room Air I & O 08/05/21 08/05/21 08/06/21 15:00 23:00 07:00 Intake Total 840 ml 240 ml Balance 840 ml 240 ml Current Medications: Meds: Current Medications Medications (Trade) Dose Ordered Sig/Vera Route PRN Reason Start Time Stop Time Status Last Admin Dose Admin Calcium Carbonate/ Glycine (Tums) 500 mg BID PO 07/25/21 09:00 08/05/21 20:29 Finasteride (Proscar) 5 mg DAILY PO 07/25/21 09:00 08/05/21 08:22 Lactobacillus Rhamnosus (Culturelle) 1 cap DAILY PO 07/25/21 09:00 08/05/21 08:22 Levetiracetam (Keppra) 1,000 mg 0800,1300 PO 07/24/21 22:00 08/05/21 12:10 Loperamide HCl (Imodium) 2 mg PRN DAILY PRN PO DIARRHEA 07/24/21 21:15 Magnesium Oxide (Magnesium Oxide) 400 mg BID PO 07/25/21 09:00 08/05/21 20:29 Olanzapine (ZyPREXA) 2.5 mg BID PO 07/24/21 22:00 08/05/21 20:29 Pantoprazole Sodium (Protonix) 40 mg DAILYAC PO 07/25/21 07:30 08/05/21 08:23 Primidone (Mysoline) 12.5 mg DAILY PO 07/25/21 09:00 08/02/21 17:19 DC 08/02/21 08:46 Melatonin (Melatonin) 6 mg HS PO 07/24/21 22:00 08/05/21 20:28 Acetaminophen (Tylenol) 650 mg PRN Q6HRS PRN PO MILD PAIN / TEMP > 100.3'F 07/24/21 21:45 07/24/21 22:15 Multi-Ingredient Ointment (Analgesic [place]) 1 nicol PRN QID PRN TP MUSCLE PAIN 07/24/21 21:45 Al Hydroxide/Mg Hydroxide (Mylanta Plus Xs) 15 ml PRN AFTMEALHC PRN PO DYSPEPSIA 07/24/21 21:45 Magnesium Hydroxide (Milk Of Magnesia) 2,400 mg PRN QHS PRN PO CONSTIPATION 07/24/21 21:45 Influenza Virus Vaccine Quadrival (Flulaval Quad [id number] Syringe) 0.5 ml ONCE ONCE VAX IM 07/25/21 09:00 07/25/21 09:01 DC 07/25/21 14:41 Olanzapine (ZyPREXA ZYDIS) 2.5 mg PRN Q2HR PRN PO PSYCHOSIS 07/25/21 18:45 07/26/21 11:01 Mirtazapine (Remeron) 7.5 mg QHS PO 07/25/21 21:00 08/05/21 20:29 Sertraline HCl (Zoloft) 25 mg DAILY PO 07/26/21 09:00 07/28/21 10:01 DC 07/28/21 08:52 Sertraline HCl (Zoloft) 50 mg DAILY PO 07/29/21 09:00 07/31/21 15:00 DC 07/31/21 08:52 Vitamin D (Vitamin D3) 50,000 unit WEEKLY PO 07/29/21 16:00 08/05/21 08:23 Sertraline HCl (Zoloft) 75 mg DAILY PO 08/01/21 09:00 08/05/21 08:22 Primidone (Mysoline) 25 mg DAILY PO 08/03/21 09:00 08/05/21 08:24 Primidone (Mysoline) 25 mg QHS PO 08/03/21 21:00 08/05/21 20:29 I have reviewed the current psychotropics carefully including drug interactions. Risk benefit ratio favors no change other than as noted in my dictated progress note. 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
[2021-08-06] MEDS: OLANZapine 2.5 MG TABLET PO SCH ×2 (07:40→20:28)
[2021-08-06] MEDS: FINASTERIDE 5 MG TABLET. PO SCH (07:40)
[2021-08-06] MEDS: PANTOPRAZOLE 40 MG TABLET. PO SCH (07:40)
[2021-08-06] MEDS: levETIRAcetam 500 MG TABLET PO SCH ×2 (07:40→11:31)
[2021-08-06] MEDS: CALCIUM CARBONATE 500 MG TAB.CHEW PO SCH ×2 (07:40→20:28)
[2021-08-06] MEDS: MAGNESIUM OXIDE 400 MG TABLET PO SCH ×2 (07:41→20:28)
[2021-08-06] MEDS: PRIMIDONE 50 MG TABLET PO SCH ×2 (07:41→20:28)
[2021-08-06] MEDS: LACTOBACILLUS RHAMNOSUS GG 1 CAPSULE. PO SCH ×2 (07:41→20:28)
[2021-08-06] MEDS: SERTRALINE 25 MG TABLET. PO SCH (07:42)
[2021-08-06 16:06] VITALS: BP 130/71
[2021-08-06] MEDS: MIRTAZAPINE 7.5 MG TABLET. PO SCH (20:28)
[2021-08-06] MEDS: MELATONIN 3 MG TABLET PO SCH (20:28)
--- NOTE | 2021-08-06 21:03 | PDOC ---
Exam Note: Phillip Note: Please also refer to the separate dictated note~for this date of service dictated separately.~Patient seen individually. Discussed the patient with Nursing staff reviewed the chart.~Reviewed interim history and current functioning. Reviewed vital signs,~Labs/ Radiology~and current medications noted below. Continue current treatment with the changes noted in the dictated addendum note Assessment: Vital Signs/I&O: Vital Signs Date Time Temp Pulse Resp B/P (MAP) Pulse Ox O2 Delivery O2 Flow Rate FiO2 08/06/21 16:06 98.0 78 19 130/71 (90) 95 08/05/21 15:45 Room Air I & O 08/05/21 08/05/21 08/06/21 15:00 23:00 07:00 Intake Total 840 ml 240 ml Balance 840 ml 240 ml Current Medications: Meds: Current Medications Medications (Trade) Dose Ordered Sig/Vera Route PRN Reason Start Time Stop Time Status Last Admin Dose Admin Calcium Carbonate/ Glycine (Tums) 500 mg BID PO 07/25/21 09:00 08/06/21 20:28 Finasteride (Proscar) 5 mg DAILY PO 07/25/21 09:00 08/06/21 07:40 Lactobacillus Rhamnosus (Culturelle) 1 cap DAILY PO 07/25/21 09:00 08/06/21 20:28 Levetiracetam (Keppra) 1,000 mg 0800,1300 PO 07/24/21 22:00 08/06/21 11:31 Loperamide HCl (Imodium) 2 mg PRN DAILY PRN PO DIARRHEA 07/24/21 21:15 Magnesium Oxide (Magnesium Oxide) 400 mg BID PO 07/25/21 09:00 08/06/21 20:28 Olanzapine (ZyPREXA) 2.5 mg BID PO 07/24/21 22:00 08/06/21 20:28 Pantoprazole Sodium (Protonix) 40 mg DAILYAC PO 07/25/21 07:30 08/06/21 07:40 Primidone (Mysoline) 12.5 mg DAILY PO 07/25/21 09:00 08/02/21 17:19 DC 08/02/21 08:46 Melatonin (Melatonin) 6 mg HS PO 07/24/21 22:00 08/06/21 20:28 Acetaminophen (Tylenol) 650 mg PRN Q6HRS PRN PO MILD PAIN / TEMP > 100.3'F 07/24/21 21:45 07/24/21 22:15 Multi-Ingredient Ointment (Analgesic [place]) 1 nicol PRN QID PRN TP MUSCLE PAIN 07/24/21 21:45 Al Hydroxide/Mg Hydroxide (Mylanta Plus Xs) 15 ml PRN AFTMEALHC PRN PO DYSPEPSIA 07/24/21 21:45 Magnesium Hydroxide (Milk Of Magnesia) 2,400 mg PRN QHS PRN PO CONSTIPATION 07/24/21 21:45 Influenza Virus Vaccine Quadrival (Flulaval Quad [id number] Syringe) 0.5 ml ONCE ONCE VAX IM 07/25/21 09:00 07/25/21 09:01 DC 07/25/21 14:41 Olanzapine (ZyPREXA ZYDIS) 2.5 mg PRN Q2HR PRN PO PSYCHOSIS 07/25/21 18:45 07/26/21 11:01 Mirtazapine (Remeron) 7.5 mg QHS PO 07/25/21 21:00 08/06/21 20:28 Sertraline HCl (Zoloft) 25 mg DAILY PO 07/26/21 09:00 07/28/21 10:01 DC 07/28/21 08:52 Sertraline HCl (Zoloft) 50 mg DAILY PO 07/29/21 09:00 07/31/21 15:00 DC 07/31/21 08:52 Vitamin D (Vitamin D3) 50,000 unit WEEKLY PO 07/29/21 16:00 08/05/21 08:23 Sertraline HCl (Zoloft) 75 mg DAILY PO 08/01/21 09:00 08/06/21 07:42 Primidone (Mysoline) 25 mg DAILY PO 08/03/21 09:00 08/06/21 07:41 Primidone (Mysoline) 25 mg QHS PO 08/03/21 21:00 08/06/21 20:28 I have reviewed the current psychotropics carefully including drug interactions. Risk benefit ratio favors no change other than as noted in my dictated progress note. Diagnosis: Problems: (1) Major depressive disorder, recurrent, severe with psychotic features (2) Impulse control disorder, unspecified (3) Anxiety disorder, unspecified (4) Dementia, vascular, with depression (5) Dementia, vascular, with delusions (6) Dementia in Alzheimer's disease with depression (7) Dementia in Alzheimer's disease with delusions (8) Major neurocognitive disorder (9) Dementia in Alzheimer's disease with early onset with behavioral disturbance ARON MULLER MD Aug 06, 2021 21:03
[2021-08-07] MEDS: ACETAMINOPHEN 325 MG TABLET PO PRN (05:17)
[2021-08-07 05:57] VITALS: BP 150/86
--- NOTE | 2021-08-07 07:27 | PDOC ---
Exam Note: Phillip Note: This note is a late entry for 08/06/2021 covers elements not covered in my initial note. Subjective: The patient was seen individually in the evening of 08/06/2021 with Marly COTTON, discussed and reviewed the chart. The patient slept 5 hours previous night. He has had no behaviors and is doing about the same per nursing staff. He remains confused. Review of Systems: Impaired ambulation with walker. No CV, , pulmonary, eye system symptoms on review. Mental Status Exam: The patient is oriented to himself. He was lying in bed. He did have his shirt in place. He was verbal, appropriate and confused. Insight, judgment, recent and remote memory, attention and concentration, fund o f knowledge is poor consistent with his diagnosis. Laboratory Data: Reviewed. Impression: Major depressive disorder, recurrent, severe with psychotic features. Major neurocognitive disorder, multifactorial with delusion, depression behavioral disturbance. Anxiety disorder unspecified. Impulse control disorder unspecified. Plan: No change from initial note. Assessment: Vital Signs/I&O: Vital Signs Date Time Temp Pulse Resp B/P (MAP) Pulse Ox O2 Delivery O2 Flow Rate FiO2 08/07/21 05:57 97.6 75 18 150/86 (107) 94 08/05/21 15:45 Room Air I & O 08/06/21 08/06/21 08/07/21 15:00 23:00 07:00 Intake Total 820 ml 240 ml 0 ml Balance 820 ml 240 ml 0 ml Current Medications: Meds: Current Medications Medications (Trade) Dose Ordered Sig/Vera Route PRN Reason Start Time Stop Time Status Last Admin Dose Admin Calcium Carbonate/ Glycine (Tums) 500 mg BID PO 07/25/21 09:00 08/06/21 20:28 Finasteride (Proscar) 5 mg DAILY PO 07/25/21 09:00 08/06/21 07:40 Lactobacillus Rhamnosus (Culturelle) 1 cap DAILY PO 07/25/21 09:00 08/06/21 20:28 Levetiracetam (Keppra) 1,000 mg 0800,1300 PO 07/24/21 22:00 08/06/21 11:31 Loperamide HCl (Imodium) 2 mg PRN DAILY PRN PO DIARRHEA 07/24/21 21:15 Magnesium Oxide (Magnesium Oxide) 400 mg BID PO 07/25/21 09:00 08/06/21 20:28 Olanzapine (ZyPREXA) 2.5 mg BID PO 07/24/21 22:00 08/06/21 20:28 Pantoprazole Sodium (Protonix) 40 mg DAILYAC PO 07/25/21 07:30 08/06/21 07:40 Primidone (Mysoline) 12.5 mg DAILY PO 07/25/21 09:00 08/02/21 17:19 DC 08/02/21 08:46 Melatonin (Melatonin) 6 mg HS PO 07/24/21 22:00 08/06/21 20:28 Acetaminophen (Tylenol) 650 mg PRN Q6HRS PRN PO MILD PAIN / TEMP > 100.3'F 07/24/21 21:45 08/07/21 05:17 Multi-Ingredient Ointment (Analgesic [place]) 1 nicol PRN QID PRN TP MUSCLE PAIN 07/24/21 21:45 Al Hydroxide/Mg Hydroxide (Mylanta Plus Xs) 15 ml PRN AFTMEALHC PRN PO DYSPEPSIA 07/24/21 21:45 Magnesium Hydroxide (Milk Of Magnesia) 2,400 mg PRN QHS PRN PO CONSTIPATION 07/24/21 21:45 Influenza Virus Vaccine Quadrival (Flulaval Quad [id number] Syringe) 0.5 ml ONCE ONCE VAX IM 07/25/21 09:00 07/25/21 09:01 DC 07/25/21 14:41 Olanzapine (ZyPREXA ZYDIS) 2.5 mg PRN Q2HR PRN PO PSYCHOSIS 07/25/21 18:45 07/26/21 11:01 Mirtazapine (Remeron) 7.5 mg QHS PO 07/25/21 21:00 08/06/21 20:28 Sertraline HCl (Zoloft) 25 mg DAILY PO 07/26/21 09:00 07/28/21 10:01 DC 07/28/21 08:52 Sertraline HCl (Zoloft) 50 mg DAILY PO 07/29/21 09:00 07/31/21 15:00 DC 07/31/21 08:52 Vitamin D (Vitamin D3) 50,000 unit WEEKLY PO 07/29/21 16:00 12/13/21 08:23 Sertraline HCl (Zoloft) 75 mg DAILY PO 08/01/21 09:00 08/06/21 07:42 Primidone (Mysoline) 25 mg DAILY PO 08/03/21 09:00 08/06/21 07:41 Primidone (Mysoline) 25 mg QHS PO 08/03/21 21:00 08/06/21 20:28 I have reviewed the current psychotropics carefully including drug interactions. Risk benefit ratio favors no change other than as noted in my dictated progress note. Diagnosis: Problems: (1) Major depressive disorder, recurrent, severe with psychotic features (2) Impulse control disorder, unspecified (3) Anxiety disorder, unspecified (4) Dementia, vascular, with depression (5) Dementia, vascular, with delusions (6) Dementia in Alzheimer's disease with depression (7) Dementia in Alzheimer's disease with delusions (8) Major neurocognitive disorder (9) Dementia in Alzheimer's disease with early onset with behavioral disturbance ARON MULLER MD Aug 07, 2021 07:27
[2021-08-07] MEDS: levETIRAcetam 500 MG TABLET PO SCH ×2 (08:54→12:08)
[2021-08-07] MEDS: OLANZapine 2.5 MG TABLET PO SCH ×2 (08:54→20:14)
[2021-08-07] MEDS: FINASTERIDE 5 MG TABLET. PO SCH (08:54)
[2021-08-07] MEDS: PANTOPRAZOLE 40 MG TABLET. PO SCH (08:54)
[2021-08-07] MEDS: SERTRALINE 25 MG TABLET. PO SCH (08:55)
[2021-08-07] MEDS: PRIMIDONE 50 MG TABLET PO SCH ×2 (08:55→20:13)
[2021-08-07] MEDS: CALCIUM CARBONATE 500 MG TAB.CHEW PO SCH ×2 (08:55→20:14)
[2021-08-07] MEDS: MAGNESIUM OXIDE 400 MG TABLET PO SCH ×2 (08:55→20:14)
[2021-08-07 15:57] VITALS: BP 146/70
[2021-08-07] MEDS: MELATONIN 3 MG TABLET PO SCH (20:14)
[2021-08-07] MEDS: MIRTAZAPINE 7.5 MG TABLET. PO SCH (20:14)
--- NOTE | 2021-08-07 20:59 | PDOC ---
Exam Note: Phillip Note: Please also refer to the separate dictated note~for this date of service dictated separately.~Patient seen individually. Discussed the patient with Nursing staff reviewed the chart.~Reviewed interim history and current functioning. Reviewed vital signs,~Labs/ Radiology~and current medications noted below. Continue current treatment with the changes noted in the dictated addendum note Assessment: Vital Signs/I&O: Vital Signs Date Time Temp Pulse Resp B/P (MAP) Pulse Ox O2 Delivery O2 Flow Rate FiO2 08/07/21 15:57 97.8 66 18 146/70 (95) 94 Room Air I & O 08/06/21 08/06/21 08/07/21 15:00 23:00 07:00 Intake Total 820 ml 240 ml 0 ml Balance 820 ml 240 ml 0 ml Current Medications: Meds: Current Medications Medications (Trade) Dose Ordered Sig/Vera Route PRN Reason Start Time Stop Time Status Last Admin Dose Admin Calcium Carbonate/ Glycine (Tums) 500 mg BID PO 07/25/21 09:00 08/07/21 20:14 Finasteride (Proscar) 5 mg DAILY PO 07/25/21 09:00 08/07/21 08:54 Lactobacillus Rhamnosus (Culturelle) 1 cap DAILY PO 07/25/21 09:00 08/06/21 20:28 Levetiracetam (Keppra) 1,000 mg 0800,1300 PO 07/24/21 22:00 08/07/21 12:08 Loperamide HCl (Imodium) 2 mg PRN DAILY PRN PO DIARRHEA 07/24/21 21:15 Magnesium Oxide (Magnesium Oxide) 400 mg BID PO 07/25/21 09:00 08/07/21 20:14 Olanzapine (ZyPREXA) 2.5 mg BID PO 07/24/21 22:00 08/07/21 20:14 Pantoprazole Sodium (Protonix) 40 mg DAILYAC PO 07/25/21 07:30 08/07/21 08:54 Primidone (Mysoline) 12.5 mg DAILY PO 07/25/21 09:00 08/02/21 17:19 DC 08/02/21 08:46 Melatonin (Melatonin) 6 mg HS PO 07/24/21 22:00 08/07/21 20:14 Acetaminophen (Tylenol) 650 mg PRN Q6HRS PRN PO MILD PAIN / TEMP > 100.3'F 07/24/21 21:45 08/07/21 05:17 Multi-Ingredient Ointment (Analgesic [place]) 1 nicol PRN QID PRN TP MUSCLE PAIN 07/24/21 21:45 Al Hydroxide/Mg Hydroxide (Mylanta Plus Xs) 15 ml PRN AFTMEALHC PRN PO DYSPEPSIA 07/24/21 21:45 Magnesium Hydroxide (Milk Of Magnesia) 2,400 mg PRN QHS PRN PO CONSTIPATION 07/24/21 21:45 Influenza Virus Vaccine Quadrival (Flulaval Quad [id number] Syringe) 0.5 ml ONCE ONCE VAX IM 07/25/21 09:00 07/25/21 09:01 DC 07/25/21 14:41 Olanzapine (ZyPREXA ZYDIS) 2.5 mg PRN Q2HR PRN PO PSYCHOSIS 07/25/21 18:45 07/26/21 11:01 Mirtazapine (Remeron) 7.5 mg QHS PO 07/25/21 21:00 08/07/21 20:14 Sertraline HCl (Zoloft) 25 mg DAILY PO 07/26/21 09:00 07/28/21 10:01 DC 07/28/21 08:52 Sertraline HCl (Zoloft) 50 mg DAILY PO 07/29/21 09:00 07/31/21 15:00 DC 07/31/21 08:52 Vitamin D (Vitamin D3) 50,000 unit WEEKLY PO 07/29/21 16:00 08/05/21 08:23 Sertraline HCl (Zoloft) 75 mg DAILY PO 08/01/21 09:00 08/07/21 18:40 DC 08/07/21 08:55 Primidone (Mysoline) 25 mg DAILY PO 08/03/21 09:00 08/07/21 08:55 Primidone (Mysoline) 25 mg QHS PO 08/03/21 21:00 08/07/21 20:13 Sertraline HCl (Zoloft) 100 mg DAILY PO 08/08/21 09:00 I have reviewed the current psychotropics carefully including drug interactions. Risk benefit ratio favors no change other than as noted in my dictated progress note. Diagnosis: Problems: (1) Major depressive disorder, recurrent, severe with psychotic features (2) Impulse control disorder, unspecified (3) Anxiety disorder, unspecified (4) Dementia, vascular, with depression (5) Dementia, vascular, with delusions (6) Dementia in Alzheimer's disease with depression (7) Dementia in Alzheimer's disease with delusions (8) Major neurocognitive disorder (9) Dementia in Alzheimer's disease with early onset with behavioral disturbance ARON MULLER MD Aug 07, 2021 20:59
[2021-08-08 05:48] VITALS: BP 146/75
--- NOTE | 2021-08-08 07:55 | PDOC ---
Exam Note: Phillip Note: This note is a late entry for 08/07/2021 covers elements not covered in my initial note. Subjective: The patient was seen individually in the evening of 08/07/2021 with Dakota COTTON, discussed and reviewed the chart. The patient slept 7-1/2 hours previous night. Overall he seems more oriented. I met with him after dinner when the plates had been removed and he was able to accurately tell me what he had for dinner including Shiraz steak, a roll, vegetables and mashed potatoes and iced tea. He seems to have word finding problems at times but less delusional. Review of Systems: Gait unsteady, with walker. No CV, , pulmonary, eye system symptoms on review. Mental Status Exam: The patient is oriented to himself and situation. Speech is low in rate and rhythm, low in volume, coherent. Abstraction fair. Co mputation impaired. Language function intact. Short-term memory is showing improvement. He was smiling as I met with him. Laboratory Data: Reviewed. Impression: Major depressive disorder with psychotic features. Mild cognitive impairment. Anxiety disorder unspecified. Impulse control disorder unspecified. Plan: Continue current psychotropics and after he has been on Zoloft 75 mg a day for 5 days, we will increase to 100 mg a day. Maintain rest unchanged. Assessment: Vital Signs/I&O: Vital Signs Date Time Temp Pulse Resp B/P (MAP) Pulse Ox O2 Delivery O2 Flow Rate FiO2 08/08/21 05:48 97.1 55 18 146/75 (98) 96 08/07/21 15:57 Room Air I & O 08/07/21 08/07/21 08/08/21 15:00 23:00 07:00 Intake Total 720 ml 600 ml Balance 720 ml 600 ml Current Medications: Meds: Current Medications Medications (Trade) Dose Ordered Sig/Vera Route PRN Reason Start Time Stop Time Status Last Admin Dose Admin Calcium Carbonate/ Glycine (Tums) 500 mg BID PO 07/25/21 09:00 08/07/21 20:14 Finasteride (Proscar) 5 mg DAILY PO 07/25/21 09:00 08/07/21 08:54 Lactobacillus Rhamnosus (Culturelle) 1 cap DAILY PO 07/25/21 09:00 08/06/21 20:28 Levetiracetam (Keppra) 1,000 mg 0800,1300 PO 07/24/21 22:00 08/07/21 12:08 Loperamide HCl (Imodium) 2 mg PRN DAILY PRN PO DIARRHEA 07/24/21 21:15 Magnesium Oxide (Magnesium Oxide) 400 mg BID PO 07/25/21 09:00 08/07/21 20:14 Olanzapine (ZyPREXA) 2.5 mg BID PO 07/24/21 22:00 08/07/21 20:14 Pantoprazole Sodium (Protonix) 40 mg DAILYAC PO 07/25/21 07:30 08/07/21 08:54 Primidone (Mysoline) 12.5 mg DAILY PO 07/25/21 09:00 08/02/21 17:19 DC 08/02/21 08:46 Melatonin (Melatonin) 6 mg HS PO 07/24/21 22:00 08/07/21 20:14 Acetaminophen (Tylenol) 650 mg PRN Q6HRS PRN PO MILD PAIN / TEMP > 100.3'F 07/24/21 21:45 08/07/21 05:17 Multi-Ingredient Ointment (Analgesic [place]) 1 nicol PRN QID PRN TP MUSCLE PAIN 07/24/21 21:45 Al Hydroxide/Mg Hydroxide (Mylanta Plus Xs) 15 ml PRN AFTMEALHC PRN PO DYSPEPSIA 07/24/21 21:45 Magnesium Hydroxide (Milk Of Magnesia) 2,400 mg PRN QHS PRN PO CONSTIPATION 07/24/21 21:45 Influenza Virus Vaccine Quadrival (Flulaval Quad [id number] Syringe) 0.5 ml ONCE ONCE VAX IM 07/25/21 09:00 07/25/21 09:01 DC 07/25/21 14:41 Olanzapine (ZyPREXA ZYDIS) 2.5 mg PRN Q2HR PRN PO PSYCHOSIS 07/25/21 18:45 07/26/21 11:01 Mirtazapine (Remeron) 7.5 mg QHS PO 07/25/21 21:00 08/07/21 20:14 Sertraline HCl (Zoloft) 25 mg DAILY PO 07/26/21 09:00 07/28/21 10:01 DC 07/28/21 08:52 Sertraline HCl (Zoloft) 50 mg DAILY PO 07/29/21 09:00 07/31/21 15:00 DC 07/31/21 08:52 Vitamin D (Vitamin D3) 50,000 unit WEEKLY PO 07/29/21 16:00 08/05/21 08:23 Sertraline HCl (Zoloft) 75 mg DAILY PO 08/01/21 09:00 08/07/21 18:40 DC 08/07/21 08:55 Primidone (Mysoline) 25 mg DAILY PO 08/03/21 09:00 08/07/21 08:55 Primidone (Mysoline) 25 mg QHS PO 08/03/21 21:00 08/07/21 20:13 Sertraline HCl (Zoloft) 100 mg DAILY PO 08/08/21 09:00 I have reviewed the current psychotropics carefully including drug interactions. Risk benefit ratio favors no change other than as noted in my dictated progress note. Diagnosis: Problems: (1) Mild cognitive impairment (2) Impulse control disorder, unspecified (3) Anxiety disorder, unspecified (4) Major depressive disorder with psychotic features ARON MULLER MD Aug 08, 2021 07:55
[2021-08-08] MEDS: FINASTERIDE 5 MG TABLET. PO SCH (08:27)
[2021-08-08] MEDS: SERTRALINE 100 MG TABLET. PO SCH (08:27)
[2021-08-08] MEDS: LACTOBACILLUS RHAMNOSUS GG 1 CAPSULE. PO SCH (08:27)
[2021-08-08] MEDS: CALCIUM CARBONATE 500 MG TAB.CHEW PO SCH ×2 (08:27→20:51)
[2021-08-08] MEDS: MAGNESIUM OXIDE 400 MG TABLET PO SCH ×2 (08:27→20:50)
[2021-08-08] MEDS: PANTOPRAZOLE 40 MG TABLET. PO SCH (08:27)
[2021-08-08] MEDS: OLANZapine 2.5 MG TABLET PO SCH ×2 (08:27→20:50)
[2021-08-08] MEDS: levETIRAcetam 500 MG TABLET PO SCH ×2 (08:28→12:38)
[2021-08-08] MEDS: PRIMIDONE 50 MG TABLET PO SCH ×2 (08:28→20:50)
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
[2021-08-08 15:46] VITALS: BP 139/80
[2021-08-08] MEDS: MIRTAZAPINE 7.5 MG TABLET. PO SCH (20:50)
[2021-08-08] MEDS: MELATONIN 3 MG TABLET PO SCH (20:50)
--- NOTE | 2021-08-08 21:05 | PDOC ---
Exam Note: Phillip Note: Please also refer to the separate dictated note~for this date of service dictated separately.~Patient seen individually. Discussed the patient with Nursing staff reviewed the chart.~Reviewed interim history and current functioning. Reviewed vital signs,~Labs/ Radiology~and current medications noted below. Continue current treatment with the changes noted in the dictated addendum note Assessment: Vital Signs/I&O: Vital Signs Date Time Temp Pulse Resp B/P (MAP) Pulse Ox O2 Delivery O2 Flow Rate FiO2 08/08/21 15:46 98.5 67 16 139/80 (99) 95 Room Air I & O 08/07/21 08/07/21 08/08/21 14:59 22:59 06:59 Intake Total 720 ml 600 ml Balance 720 ml 600 ml Current Medications: Meds: Current Medications Medications (Trade) Dose Ordered Sig/Vera Route PRN Reason Start Time Stop Time Status Last Admin Dose Admin Calcium Carbonate/ Glycine (Tums) 500 mg BID PO 07/25/21 09:00 08/08/21 20:51 Finasteride (Proscar) 5 mg DAILY PO 07/25/21 09:00 08/08/21 08:27 Lactobacillus Rhamnosus (Culturelle) 1 cap DAILY PO 07/25/21 09:00 08/08/21 08:27 Levetiracetam (Keppra) 1,000 mg 0800,1300 PO 07/24/21 22:00 08/08/21 12:38 Loperamide HCl (Imodium) 2 mg PRN DAILY PRN PO DIARRHEA 07/24/21 21:15 Magnesium Oxide (Magnesium Oxide) 400 mg BID PO 07/25/21 09:00 08/08/21 20:50 Olanzapine (ZyPREXA) 2.5 mg BID PO 07/24/21 22:00 08/08/21 20:50 Pantoprazole Sodium (Protonix) 40 mg DAILYAC PO 07/25/21 07:30 08/08/21 08:27 Primidone (Mysoline) 12.5 mg DAILY PO 07/25/21 09:00 08/02/21 17:19 DC 08/02/21 08:46 Melatonin (Melatonin) 6 mg HS PO 07/24/21 22:00 08/08/21 20:50 Acetaminophen (Tylenol) 650 mg PRN Q6HRS PRN PO MILD PAIN / TEMP > 100.3'F 07/24/21 21:45 08/07/21 05:17 Multi-Ingredient Ointment (Analgesic [place]) 1 nicol PRN QID PRN TP MUSCLE PAIN 07/24/21 21:45 Al Hydroxide/Mg Hydroxide (Mylanta Plus Xs) 15 ml PRN AFTMEALHC PRN PO DYSPEPSIA 07/24/21 21:45 Magnesium Hydroxide (Milk Of Magnesia) 2,400 mg PRN QHS PRN PO CONSTIPATION 07/24/21 21:45 Influenza Virus Vaccine Quadrival (Flulaval Quad [id number] Syringe) 0.5 ml ONCE ONCE VAX IM 07/25/21 09:00 07/25/21 09:01 DC 07/25/21 14:41 Olanzapine (ZyPREXA ZYDIS) 2.5 mg PRN Q2HR PRN PO PSYCHOSIS 07/25/21 18:45 07/26/21 11:01 Mirtazapine (Remeron) 7.5 mg QHS PO 07/25/21 21:00 08/08/21 20:50 Sertraline HCl (Zoloft) 25 mg DAILY PO 07/26/21 09:00 07/28/21 10:01 SC 07/28/21 08:52 Sertraline HCl (Zoloft) 50 mg DAILY PO 07/29/21 09:00 07/31/21 15:00 DC 07/31/21 08:52 Vitamin D (Vitamin D3) 50,000 unit WEEKLY PO 07/29/21 16:00 08/05/21 08:23 Sertraline HCl (Zoloft) 75 mg DAILY PO 08/01/21 09:00 08/07/21 18:40 DC 08/07/21 08:55 Primidone (Mysoline) 25 mg DAILY PO 08/03/21 09:00 08/08/21 08:28 Primidone (Mysoline) 25 mg QHS PO 08/03/21 21:00 08/08/21 20:50 Sertraline HCl (Zoloft) 100 mg DAILY PO 08/08/21 09:00 08/08/21 08:27 Current Medications Medications (Trade) Dose Ordered Sig/Vera Route PRN Reason Start Time Stop Time Status Last Admin Dose Admin Sertraline HCl (Zoloft) 100 mg DAILY PO 08/08/21 09:00 08/08/21 08:27 I have reviewed the current psychotropics carefully including drug interactions. Risk benefit ratio favors no change other than as noted in my dictated progress note. Diagnosis: Problems: (1) Major depressive disorder, recurrent, severe with psychotic features (2) Impulse control disorder, unspecified (3) Anxiety disorder, unspecified (4) Dementia, vascular, with depression (5) Dementia, vascular, with delusions (6) Dementia in Alzheimer's disease with depression (7) Dementia in Alzheimer's disease with delusions (8) Major neurocognitive disorder (9) Dementia in Alzheimer's disease with early onset with behavioral disturbance (10) Mild cognitive impairment (11) Major depressive disorder with psychotic features ARON MULLER MD Aug 08, 2021 21:05
[2021-08-09 06:05] VITALS: BP 155/75
--- NOTE | 2021-08-09 06:52 | PDOC ---
Exam Note: Phillip Note: This note is a late entry for 08/08/2021 covers elements not covered in my initial note. Subjective: The patient was reviewed at treatment team meeting individually in the morning on 08/08/2021 with Maria Esther Salinas, Laisha Patel, and Angelica Isabel (social staff worker), Devorah Stratton (Video Game Tester), Caprice, activity therapy, and Dakota COTTON, discussed and reviewed the chart. The patients Julieta attended the meeting. The patient slept 7-1/2 hours previous night. Appetite 80%. Patient remains confused. Short-term memory is better than before. He does seemed to have some word finding problems. Wound Care team has signed off post treatment of his wound on his bottom. He had flu vaccine on 07/25/2021. Often he tries to ambulate without a walker. He is pleasant in groups. Attended 6 in the past one week. I met with him in his room. Review of Systems: Ambulation impaired as noted. No CV, , pulmonary, eye system symptoms on review. Mental Status Exam: The patient is oriented to himself and situation. He seems less confused than before. Speech is low in rate and rhythm, low in volume, coherent. Abstraction fair. Computation impaired. Language function intact. Short-term memory is better than before. No suicidal or homicidal ideation. Laboratory Data: Reviewed. Impression: Major depressive disorder with psychotic features. Mild cognitive impairment. Anxiety disorder unspecified. Impulse control disorder unspe cified. Plan: Continue current psychotropics. Assessment: Vital Signs/I&O: Vital Signs Date Time Temp Pulse Resp B/P (MAP) Pulse Ox O2 Delivery O2 Flow Rate FiO2 08/09/21 06:05 97.3 70 17 155/75 (101) 92 Room Air I & O 08/08/21 08/08/21 08/09/21 15:00 23:00 07:00 Intake Total 720 ml 240 ml Balance 720 ml 240 ml Current Medications: Meds: Current Medications Medications (Trade) Dose Ordered Sig/Vera Route PRN Reason Start Time Stop Time Status Last Admin Dose Admin Calcium Carbonate/ Glycine (Tums) 500 mg BID PO 07/25/21 09:00 08/08/21 20:51 Finasteride (Proscar) 5 mg DAILY PO 07/25/21 09:00 08/08/21 08:27 Lactobacillus Rhamnosus (Culturelle) 1 cap DAILY PO 07/25/21 09:00 08/08/21 08:27 Levetiracetam (Keppra) 1,000 mg 0800,1300 PO 07/24/21 22:00 08/08/21 12:38 Loperamide HCl (Imodium) 2 mg PRN DAILY PRN PO DIARRHEA 07/24/21 21:15 Magnesium Oxide (Magnesium Oxide) 400 mg BID PO 07/25/21 09:00 08/08/21 20:50 Olanzapine (ZyPREXA) 2.5 mg BID PO 07/24/21 22:00 08/08/21 20:50 Pantoprazole Sodium (Protonix) 40 mg DAILYAC PO 07/25/21 07:30 08/08/21 08:27 Primidone (Mysoline) 12.5 mg DAILY PO 07/25/21 09:00 08/02/21 17:19 DC 08/02/21 08:46 Melatonin (Melatonin) 6 mg HS PO 07/24/21 22:00 08/08/21 20:50 Acetaminophen (Tylenol) 650 mg PRN Q6HRS PRN PO MILD PAIN / TEMP > 100.3'F 07/24/21 21:45 08/07/21 05:17 Multi-Ingredient Ointment (Analgesic [place]) 1 nicol PRN QID PRN TP MUSCLE PAIN 07/24/21 21:45 Al Hydroxide/Mg Hydroxide (Mylanta Plus Xs) 15 ml PRN AFTMEALHC PRN PO DYSPEPSIA 07/24/21 21:45 Magnesium Hydroxide (Milk Of Magnesia) 2,400 mg PRN QHS PRN PO CONSTIPATION 07/24/21 21:45 Influenza Virus Vaccine Quadrival (Flulaval Quad [id number] Syringe) 0.5 ml ONCE ONCE VAX IM 07/25/21 09:00 07/25/21 09:01 DC 07/25/21 14:41 Olanzapine (ZyPREXA ZYDIS) 2.5 mg PRN Q2HR PRN PO PSYCHOSIS 07/25/21 18:45 07/26/21 11:01 Mirtazapine (Remeron) 7.5 mg QHS PO 07/25/21 21:00 08/08/21 20:50 Sertraline HCl (Zoloft) 25 mg DAILY PO 07/26/21 09:00 07/28/21 10:01 DC 07/28/21 08:52 Sertraline HCl (Zoloft) 50 mg DAILY PO 07/29/21 09:00 07/31/21 15:00 DC 07/31/21 08:52 Vitamin D (Vitamin D3) 50,000 unit WEEKLY PO 07/29/21 16:00 08/05/21 08:23 Sertraline HCl (Zoloft) 75 mg DAILY PO 08/01/21 09:00 08/07/21 18:40 DC 08/07/21 08:55 Primidone (Mysoline) 25 mg DAILY PO 08/03/21 09:00 08/08/21 08:28 Primidone (Mysoline) 25 mg QHS PO 08/03/21 21:00 08/08/21 20:50 Sertraline HCl (Zoloft) 100 mg DAILY PO 08/08/21 09:00 08/08/21 08:27 Current Medications Medications (Trade) Dose Ordered Sig/Vera Route PRN Reason Start Time Stop Time Status Last Admin Dose Admin Sertraline HCl (Zoloft) 100 mg DAILY PO 08/08/21 09:00 08/08/21 08:27 I have reviewed the current psychotropics carefully including drug interactions. Risk benefit ratio favors no change other than as noted in my dictated progress note. Diagnosis: Problems: (1) Impulse control disorder, unspecified (2) Anxiety disorder, unspecified (3) Mild cognitive impairment (4) Major depressive disorder with psychotic features ARON MULLER MD Aug 09, 2021 06:52
[2021-08-09] MEDS: FINASTERIDE 5 MG TABLET. PO SCH (08:36)
[2021-08-09] MEDS: PRIMIDONE 50 MG TABLET PO SCH (08:36)
[2021-08-09] MEDS: OLANZapine 2.5 MG TABLET PO SCH (08:36)
[2021-08-09] MEDS: LACTOBACILLUS RHAMNOSUS GG 1 CAPSULE. PO SCH (08:36)
[2021-08-09] MEDS: PANTOPRAZOLE 40 MG TABLET. PO SCH (08:36)
[2021-08-09] MEDS: MAGNESIUM OXIDE 400 MG TABLET PO SCH (08:36)
[2021-08-09] MEDS: SERTRALINE 100 MG TABLET. PO SCH (08:37)
[2021-08-09] MEDS: CALCIUM CARBONATE 500 MG TAB.CHEW PO SCH (08:37)
[2021-08-09] MEDS: levETIRAcetam 500 MG TABLET PO SCH ×2 (08:38→12:31)
[2021-08-09 15:24] VITALS: BP 151/88
[2021-08-09] MEDS ORDERED: PRIM50TA24 PO (18:40)
[2021-08-09] MEDS ORDERED: MELA3TAB4 PO (18:41)
[2021-08-09] MEDS ORDERED: CHOL500021 PO (18:42)
[2021-08-09] MEDS ORDERED: OLAN5TAB99 PO (18:45)
[2021-08-09] MEDS ORDERED: MIRT-37 PO (18:46)
[2021-08-09] MEDS ORDERED: SERT100T PO (18:47)
--- NOTE | 2021-08-09 19:34 | RAD ---
CT head without contrast dated 08/09/2021 7:29 PM Comparison: None CLINICAL INDICATION: Seizure TECHNIQUE: Contiguous axial imaging of the head was performed from skull base to vertex. One or more of the following individualized dose reduction techniques were utilized for this examinat ion: 1. Automated exposure control 2. Adjustment of the mA and/or kV according to patient size 3. Use of iterative reconstruction technique. FINDINGS: Ventricles and sulci are mildly prominent for age. No midline shift or mass effect. Mild patchy low d ensity in the deep/subcortical periventricular white matter. No hemorrhage or extra-axial collection. Posterior fossa and brainstem unremarkable. Visualized paranasal sinuses and mastoid air cells are clear. No apparent calvarial abnormality. IMPRESSION: 1. No evidence of acute intracranial hemorrhage or mass. 2. Mild chronic small vessel ischemic changes and atrophy. Electronically signed by: Lenard Doyle MD (08/09/2021 7:31 PM) SHANELL
[2021-08-09 19:56] LABS: BASO # 0.1 x10^3/uL (0.0-0.2); BASO % 1 % (0-3); EOS # 0.2 x10^3/uL (0.0-0.7); EOS % 3 % (0-3); HEMATOCRIT 37.2 % (39.0-53.0); HEMOGLOBIN 11.7 g/dL (13.0-17.5); LYMPH % 11 % (24-48); MEAN CORPUSCULAR HEMOGLOBIN 27 pg (25-35); MEAN CORPUSCULAR HGB CONC 31 g/dL (31-37); MEAN CORPUSCULAR VOLUME 85 fL (79-100); MONO # 0.9 x10^3/uL (0.0-1.1); MONO % 9 % (0-9); NEUT # 7.4 x10^3uL (1.8-7.7); NEUT % 77 % (31-73); PLATELET COUNT 279 x10^3/uL (140-400); RED BLOOD COUNT 4.36 x10^6/uL (4.30-5.70); RED CELL DISTRIBUTION WIDTH 15.9 % (11.5-14.5); WHITE BLOOD COUNT 9.6 x10^3/uL (4.0-11.0)
[2021-08-09 20:03] LABS: CALCIUM 8.3 mg/dL (8.5-10.1); CREATININE 0.9 mg/dL (0.7-1.3); GFR 81.4; POTASSIUM 3.5 mmol/L (3.5-5.1)
[2021-08-09 20:09] LABS: ALBUMIN 3.2 g/dL (3.4-5.0); ALBUMIN/GLOBULIN RATIO 1.1 (1.0-1.7); TOTAL BILIRUBIN 0.3 mg/dL (0.2-1.0); TOTAL PROTEIN 6.2 g/dL (6.4-8.2)
--- NOTE | 2021-08-09 21:10 | PDOC ---
Exam Note: Phillip Note: Please also refer to the separate dictated note~for this date of service dictated separately.~Patient seen individually. Discussed the patient with Nursing staff reviewed the chart.~Reviewed interim history and current functioning. Reviewed vital signs,~Labs/ Radiology~and current medications noted below. Continue current treatment with the changes noted in the dictated addendum note Assessment: Vital Signs/I&O: Vital Signs Date Time Temp Pulse Resp B/P (MAP) Pulse Ox O2 Delivery O2 Flow Rate FiO2 08/09/21 15:24 97.6 68 20 151/88 (109) 95 08/09/21 06:05 Room Air I & O 08/08/21 08/08/21 08/09/21 15:00 23:00 07:00 Intake Total 720 ml 240 ml Balance 720 ml 240 ml Labs: Laboratory Tests Test 08/09/21 19:45 White Blood Count 9.6 x10^3/uL (4.0-11.0) Red Blood Count 4.36 x10^6/uL (4.30-5.70) Hemoglobin 11.7 g/dL (13.0-17.5) L Hematocrit 37.2 % (39.0-53.0) L Mean Corpuscular Volume 85 fL (79-100) Mean Corpuscular Hemoglobin 27 pg (25-35) Mean Corpuscular Hemoglobin Concent 31 g/dL (31-37) Red Cell Distribution Width 15.9 % (11.5-14.5) H Platelet Count 279 x10^3/uL (140-400) Neutrophils (%) (Auto) 77 % (31-73) H Lymphocytes (%) (Auto) 11 % (24-48) L Monocytes (%) (Auto) 9 % (0-9) Eosinophils (%) (Auto) 3 % (0-3) Basophils (%) (Auto) 1 % (0-3) Neutrophils # (Auto) 7.4 x10^3uL (1.8-7.7) Lymphocytes # (Auto) 1.0 x10^3/uL (1.0-4.8) Monocytes # (Auto) 0.9 x10^3/uL (0.0-1.1) Eosinophils # (Auto) 0.2 x10^3/uL (0.0-0.7) Basophils # (Auto) 0.1 x10^3/uL (0.0-0.2) Sodium Level 141 mmol/L (136-145) Potassium Level 3.5 mmol/L (3.5-5.1) Chloride Level 105 mmol/L (98-107) Carbon Dioxide Level 25 mmol/L (21-32) Anion Gap 11 (6-14) Blood Urea Nitrogen 19 mg/dL (8-26) Creatinine 0.9 mg/dL (0.7-1.3) Estimated GFR (Cockcroft-Gault) 81.4 BUN/Creatinine Ratio 21 (6-20) H Glucose Level 141 mg/dL (70-99) H Calcium Level 8.3 mg/dL (8.5-10.1) L Total Bilirubin 0.3 mg/dL (0.2-1.0) Aspartate Amino Transferase (AST) 17 U/L (15-37) Alanine Aminotransferase (ALT) 17 U/L (16-63) Alkaline Phosphatase 84 U/L (46-116) Total Protein 6.2 g/dL (6.4-8.2) L Albumin 3.2 g/dL (3.4-5.0) L Albumin/Globulin Ratio 1.1 (1.0-1.7) Current Medications: Meds: Laboratory Tests Test 08/09/21 19:45 White Blood Count 9.6 x10^3/uL Red Blood Count 4.36 x10^6/uL Hemoglobin 11.7 g/dL Hematocrit 37.2 % Mean Corpuscular Volume 85 fL Mean Corpuscular Hemoglobin 27 pg Mean Corpuscular Hemoglobin Concent 31 g/dL Red Cell Distribution Width 15.9 % Platelet Count 279 x10^3/uL Neutrophils (%) (Auto) 77 % Lymphocytes (%) (Auto) 11 % Monocytes (%) (Auto) 9 % Eosinophils (%) (Auto) 3 % Basophils (%) (Auto) 1 % Neutrophils # (Auto) 7.4 x10^3uL Lymphocytes # (Auto) 1.0 x10^3/uL Monocytes # (Auto) 0.9 x10^3/uL Eosinophils # (Auto) 0.2 x10^3/uL Basophils # (Auto) 0.1 x10^3/uL Sodium Level 141 mmol/L Potassium Level 3.5 mmol/L Chloride Level 105 mmol/L Carbon Dioxide Level 25 mmol/L Anion Gap 11 Blood Urea Nitrogen 19 mg/dL Creatinine 0.9 mg/dL Estimated GFR (Cockcroft-Gault) 81.4 BUN/Creatinine Ratio 21 Glucose Level 141 mg/dL Calcium Level 8.3 mg/dL Total Bilirubin 0.3 mg/dL Aspartate Amino Transf (AST/SGOT) 17 U/L Alanine Aminotransferase (ALT/SGPT) 17 U/L Alkaline Phosphatase 84 U/L Total Protein 6.2 g/dL Albumin 3.2 g/dL Albumin/Globulin Ratio 1.1 Current Medications Medications (Trade) Dose Ordered Sig/Vera Route PRN Reason Start Time Stop Time Status Last Admin Dose Admin Calcium Carbonate/ Glycine (Tums) 500 mg BID PO 07/25/21 09:00 08/09/21 19:03 DC 08/09/21 08:37 Finasteride (Proscar) 5 mg DAILY PO 07/25/21 09:00 08/09/21 19:03 DC 08/09/21 08:36 Lactobacillus Rhamnosus (Culturelle) 1 cap DAILY PO 07/25/21 09:00 08/09/21 19:03 DC 08/09/21 08:36 Levetiracetam (Keppra) 1,000 mg 0800,1300 PO 07/24/21 22:00 08/09/21 19:03 DC 08/09/21 12:31 Loperamide HCl (Imodium) 2 mg PRN DAILY PRN PO DIARRHEA 07/24/21 21:15 08/09/21 19:03 DC Magnesium Oxide (Magnesium Oxide) 400 mg BID PO 07/25/21 09:00 08/09/21 19:03 DC 08/09/21 08:36 Olanzapine (ZyPREXA) 2.5 mg BID PO 07/24/21 22:00 08/09/21 19:03 DC 08/09/21 08:36 Pantoprazole Sodium (Protonix) 40 mg DAILYAC PO 07/25/21 07:30 08/09/21 19:03 DC 08/09/21 08:36 Primidone (Mysoline) 12.5 mg DAILY PO 07/25/21 09:00 08/02/21 17:19 DC 08/02/21 08:46 Melatonin (Melatonin) 6 mg HS PO 07/24/21 22:00 08/09/21 19:03 DC 08/08/21 20:50 Acetaminophen (Tylenol) 650 mg PRN Q6HRS PRN PO MILD PAIN / TEMP > 100.3'F 07/24/21 21:45 08/09/21 19:03 DC 08/07/21 05:17 Multi-Ingredient Ointment (Analgesic [place]) 1 nicol PRN QID PRN TP MUSCLE PAIN 07/24/21 21:45 08/09/21 19:03 DC Al Hydroxide/Mg Hydroxide (Mylanta Plus Xs) 15 ml PRN AFTMEALHC PRN PO DYSPEPSIA 07/24/21 21:45 08/09/21 19:03 DC Magnesium Hydroxide (Milk Of Magnesia) 2,400 mg PRN QHS PRN PO CONSTIPATION 07/24/21 21:45 08/09/21 19:03 DC Influenza Virus Vaccine Quadrival (Flulaval Quad [id number] Syringe) 0.5 ml ONCE ONCE VAX IM 07/25/21 09:00 07/25/21 09:01 DC 07/25/21 14:41 Olanzapine (ZyPREXA ZYDIS) 2.5 mg PRN Q2HR PRN PO PSYCHOSIS 07/25/21 18:45 08/09/21 19:03 DC 07/26/21 11:01 Mirtazapine (Remeron) 7.5 mg QHS PO 07/25/21 21:00 08/09/21 19:03 DC 08/08/21 20:50 Sertraline HCl (Zoloft) 25 mg DAILY PO 07/26/21 09:00 07/28/21 10:01 DC 07/28/21 08:52 Sertraline HCl (Zoloft) 50 mg DAILY PO 07/29/21 09:00 07/31/21 15:00 DC 07/31/21 08:52 Vitamin D (Vitamin D3) 50,000 unit WEEKLY PO 07/29/21 16:00 08/09/21 19:03 DC 08/05/21 08:23 Sertraline HCl (Zoloft) 75 mg DAILY PO 08/01/21 09:00 08/07/21 18:40 DC 08/07/21 08:55 Primidone (Mysoline) 25 mg DAILY PO 08/03/21 09:00 12/17/21 19:03 DC 08/09/21 08:36 Primidone (Mysoline) 25 mg QHS PO 08/03/21 21:00 08/09/21 19:03 DC 08/08/21 20:50 Sertraline HCl (Zoloft) 100 mg DAILY PO 08/08/21 09:00 08/09/21 19:03 DC 08/09/21 08:37 Lorazepam (Ativan Inj) 2 mg 1X ONCE IVP 08/09/21 18:30 08/09/21 18:39 DC 08/09/21 18:57 Current Medications Medications (Trade) Dose Ordered Sig/Vera Route PRN Reason Start Time Stop Time Status Last Admin Dose Admin Lorazepam (Ativan Inj) 2 mg 1X ONCE IVP 08/09/21 18:30 08/09/21 18:39 DC 08/09/21 18:57 I have reviewed the current psychotropics carefully including drug interactions. Risk benefit ratio favors no change other than as noted in my dictated progress note. Diagnosis: Problems: (1) Impulse control disorder, unspecified (2) Anxiety disorder, unspecified (3) Mild cognitive impairment (4) Major depressive disorder with psychotic features ARON MULLER MD Aug 09, 2021 21:10
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
== END 2021-08-09 19:02 | disposition short-term general hospital (02) | DRG 57 ==
LOC: GEROPSY 18:40
PROVIDERS: ADMIT Psychiatry & Neurology Psychiatry; ATTEND Psychiatry & Neurology Psychiatry
DX: G30.9 Alzheimer's disease, unspecified (principal); F01.51 Vascular dementia, unspecified severity, with behavioral disturbance; F33.3 Major depressive disorder, recurrent, severe with psychotic symptoms; F02.81 Dementia in other diseases classified elsewhere, unspecified severity, with behavioral disturbance; R45.851 Suicidal ideations; E55.9 Vitamin D deficiency, unspecified; E78.5 Hyperlipidemia, unspecified; F40.01 Agoraphobia with panic disorder; F63.9 Impulse disorder, unspecified; G40.909 Epilepsy, unspecified, not intractable, without status epilepticus; G47.00 Insomnia, unspecified; G47.33 Obstructive sleep apnea (adult) (pediatric); I10 Essential (primary) hypertension; K21.9 Gastro-esophageal reflux disease without esophagitis; N40.0 Benign prostatic hyperplasia without lower urinary tract symptoms; Z66 Do not resuscitate; Z79.899 Other long term (current) drug therapy; Z86.16 Personal history of COVID-19
CPT/HCPCS: 36415; 70450; 80053; 80061; 82306; 82607; 83036; 83540; 83550; 83735; 84436; 84443; 84480; 85025; 85379; 86592; 90471; 90686; 93005; J2060; 97116; 97530